=== PATIENT | female | born 1980 | race Caucasian/White ===

== ENCOUNTER 2020-01-31 16:03 | Emergency (ER) | payer MEDICAID, SELFPAY ==
[2020-01-31 16:20] VITALS: BP 152/101; PULSE 88; RESP 18; TEMP 37.1; O2SAT 99; BMI 32.5
--- NOTE | 2020-01-31 16:30 | ED.ANXIETY ---
HPI - Anxiety General Chief Complaint: Anxiety Stated Complaint: anxiety Time Seen by Provider: 01/31/20 16:21 Source: patient Mode of arrival: ambulatory Limitations: no limitations History of Present Illness HPI narrative: 39 y/o female presenting with anxiety. She is reports increased stressors at home and frequent bouts of increased anxiety. She reports whens he gets anxious she gets a racing heart, she gets sweaty, and her hands get tingling. She has mild anxiety on arrival with no tingling and no racing heart. She denies chest pain, shortness of breath. She is not on any medications for anxiety. She has not seen her PCP in some time. She also reports sinus pressure, green nasal discharge for the last 1 week. No fevers, no cough, no SOB. No known exposure to COVID-19. MD complaint: anxiety Onset (ago): week(s) (4) Symptoms: palpitations, extremity numbness/tingling and sense of impending doom Severity: moderate Quality: intermittent Place: home History of similar episodes: Yes Provoking factors: emotional stress Relieving factors: deep breaths and rest Exacerbating factors: nothing Associated symptoms: denies other symptoms Related Data Previous Rx's Medication Instructions Recorded amoxicillin-pot clavulanate 1 tab PO BID #20 tab 01/31/20 [Augmentin] hydroxyzine HCl 25 mg PO Q6H PRN #10 tab 01/31/20 Allergies Allergy/AdvReac Type Severity Reaction Status Date / Time No Known Allergies Allergy Verified 01/31/20 16:23 [No Known Allergies*] Review of Systems Review of Systems: Constitutional: No Fever, No Chills Cardiovascular: No Chest Pain, No SOB, Respiratory: No Cough, No Sputum Gastrointestinal: No Nausea, No Vomiting, No Diarrhea, No abdominal Pain Musculoskeletal: No joint pain, No Myalgias Neuro: No Weakness, No Numbness, No Dizziness, No Headache Psych: + Anxiety/Panic, + Depression Heme/Lymph: No Bruising, No Lymphadenopathy PMFSH Past Medical History Attestation statement: The following information was validated with the patient. Medical History High blood pressure Social History Social History Advance Directives: No Advance Directives Information Provided: No Physical Exam Vital Signs: Vital Signs: Last Vital Signs Temp 98.8 F 01/31/20 16:20 Pulse 88 01/31/20 16:20 Resp 18 01/31/20 16:20 BP 152/101 H 01/31/20 16:20 Pulse Ox 99 01/31/20 16:20 Body Mass Index 32.5 Appearance: Alert. Oriented X3. No acute distress. ENT: Pharynx normal. Neck: Normal inspection. Neck supple. CVS: Normal heart rate and rhythm. Pulses normal. Respiratory: No respiratory distress. Breath sounds normal. Abdomen: Soft and nontender. +BS x4 Skin: Skin warm and dry. Normal skin color. Normal skin turgor. No rashes. Extremities: No lower extremity edema. Neuro: Oriented X 3. No motor deficit. No sensory deficit. Course Course Course Narrative: 39 y/o female presenting with anxiety. Given low ativan with improvement in symptoms. We discussed the importance of f/u with PCP, and how she would likely benefit from therapy and possible maintainable medication. Will give Rx for hydroxazine, patient counseled. Stable for discharge. Critical Care Time Critical Care Time Critical Care Time: No Discharge Plan Discharge Clinical Impression: Acute anxiety Sinusitis Qualifiers: Sinusitis location: frontal Chronicity: acute Recurrence: non-recurrent Qualified Code(s): J01.10 - Acute frontal sinusitis, unspecified Patient Disposition: Home, Self-Care Instructions: Sinusitis (ED), Anxiety (ED) Additional Instructions: Follow up with your doctor this week. Take the prescribed medication as needed for anxiety. Take prescribed antibiotic for infection in your sinuses. Continue to use your nasal spray, fluticasone. Come back to the ER if you develop shortness of breath, difficulty breathing, chest pain or any other concerning symptom. Prescriptions: New amoxicillin-pot clavulanate [Augmentin] 875-125 mg tablet 1 tab PO BID Qty: 20 RF: 0 hydroxyzine HCl 25 mg tablet 25 mg PO Q6H PRN (Reason: anxiety) Qty: 10 RF: 0 Interventions: ED Discharge Assessment Last Done: 01/31/20 16:41 Discharge Date/Time: 01/31/20 16:41
[2020-01-31] MEDS: hydrOXYzine HCL 25 MG TABLET PO (16:38)
== END 2020-01-31 16:41 | disposition home or self-care (01) ==
PROVIDERS: Emergency Provider Internal Medicine; PCP Family Medicine
DX: J01.10 Acute frontal sinusitis, unspecified (principal); F41.1 Generalized anxiety disorder; F43.0 Acute stress reaction
CPT/HCPCS: 99283

== ENCOUNTER 2021-01-19 10:14 | Outpatient (REF) | payer MEDICAID, SELFPAY ==
--- NOTE | ~2021-01-19 | XR_ITS ---
EXAMINATION: XR knee RT 4V, XR knee LT 4V CLINICAL INFORMATION: Bilateral knee pain. COMPARISON: None. TECHNIQUE: Standing AP views of both knees were obtained with lateral, sunrise and tunnel views of each knee. FINDINGS: LEFT KNEE: No bony abnormality. Joint spaces are maintained. Patellar alignment is normal. No joint effusion is demonstrated. RIGHT KNEE: 4 views of the right knee are also normal. XR/XR knee RT 4V IMPRESSION: Normal examination.
--- NOTE | ~2021-01-19 | XR_ITS ---
EXAMINATION: XR hand LT min 3V, XR hand RT min 3V CLINICAL INFORMATION: Bilateral hand pain. COMPARISON: None. TECHNIQUE: Left hand 3 views. Right hand 3 views. FINDINGS: LEFT HAND: No bony abnormality. Joint spaces are maintained with no erosions or other abnormality demonstrated. Alignment is anatomic. No soft tissue calcifications. RIGHT HAND: 3 views of the right hand are also normal. XR/XR hand LT min 3V IMPRESSION: Normal examination.
--- NOTE | ~2021-01-19 | XR_ITS ---
EXAMINATION: XR knee RT 4V, XR knee LT 4V CLINICAL INFORMATION: Bilateral knee pain. COMPARISON: None. TECHNIQUE: Standing AP views of both knees were obtained with lateral, sunrise and tunnel views of each knee. FINDINGS: LEFT KNEE: No bony abnormality. Joint spaces are maintained. Patellar alignment is normal. No joint effusion is demonstrated. RIGHT KNEE: 4 views of the right knee are also normal. XR/XR knee LT 4V IMPRESSION: Normal examination.
--- NOTE | ~2021-01-19 | XR_ITS ---
EXAMINATION: XR hand LT min 3V, XR hand RT min 3V CLINICAL INFORMATION: Bilateral hand pain. COMPARISON: None. TECHNIQUE: Left hand 3 views. Right hand 3 views. FINDINGS: LEFT HAND: No bony abnormality. Joint spaces are maintained with no erosions or other abnormality demonstrated. Alignment is anatomic. No soft tissue calcifications. RIGHT HAND: 3 views of the right hand are also normal. XR/XR hand RT min 3V IMPRESSION: Normal examination.
== END 2021-01-19 10:15 | disposition home or self-care (01) ==
LOC: HO.XRAY 10:14
PROVIDERS: PCP Family Medicine; Visit Provider Family Medicine
DX: M25.561 Pain in right knee (principal); M25.562 Pain in left knee; M79.642 Pain in left hand; M79.641 Pain in right hand
CPT/HCPCS: 73130; 73564

== ENCOUNTER 2021-09-14 15:18 | Outpatient (REF) | payer MEDICAID, SELFPAY ==
[2021-09-15 04:58] LABS: CT PCR NOT DETECTED (Not Detect.); NG PCR NOT DETECTED (Not Detect.)
[2021-09-15 09:22] LABS: BV Int Neg Control Negative (Negative); BV Int Pos Control Positive (Positive)
[2021-09-18 21:12] LABS: HPV mRNA E6/E7 rflx Not Detected (Not Detected)
== END 2021-09-14 15:19 | disposition home or self-care (01) ==
LOC: HO.LAB 15:18
PROVIDERS: Visit Provider Advanced Practice Midwife
DX: Z01.419 Encounter for gynecological examination (general) (routine) without abnormal findings (principal); Z11.3 Encounter for screening for infections with a predominantly sexual mode of transmission; Z11.51 Encounter for screening for human papillomavirus (HPV)
CPT/HCPCS: 87480; 87491; 87510; 87591; 87624; 87660; 88142

== ENCOUNTER → 2021-09-22 14:52 | Outpatient (BNVA) | payer MEDICAID, SELFPAY | PROVIDERS: PCP Family Medicine; Visit Provider Advanced Practice Midwife | DX: Z30.42 Encounter for surveillance of injectable contraceptive (principal) | CPT/HCPCS: 96372; 99211 ==

== ENCOUNTER 2021-12-14 14:44 | Outpatient (REF) | payer MEDICAID, SELFPAY ==
--- NOTE | ~2021-12-14 | MM_ITS ---
EXAMINATION: MM DIAGNOSTIC DIGITAL BREAST TOMOSYNTHESIS, BILATERAL US DIAGNOSTIC ULTRASOUND BREAST, LEFT CLINICAL INFORMATION: 41-year-old with palpable area mid outer left breast and tenderness. No discharge. No prior mammography. No known family history breast cancer. The lifetime risk of breast cancer based on the Tyrer-Cuzick Model is 10%. COMPARISON: None (current study represents initial baseline exam). TECHNIQUE: Digital breast tomosynthesis is performed in both the craniocaudal and mediolateral oblique views along with computer-aided detection (CAD). Synthesized 2D images are generated from the tomosynthesis. Additional magnification right CC and magnification right ML views are obtained. Ultrasound left breast is targeted to the areas of clinical concern upper outer breast using grayscale imaging and color Doppler. Patient is able to point to area of concern at time of imaging. FINDINGS: There are scattered areas of fibroglandular density (ACR BI-RADS breast composition Category b). There is no mass or architectural abnormality. The axilla and skin contours are unremarkable. No skin thickening or coarsening of the Wali's ligaments. Left breast and a few scattered punctate calcifications. Right breast has similar punctate calcifications but loosely grouped in the central anterior breast. Chronicity is unknown. Management plan is for short interval right mammography in 6 months to include magnification views. Ultrasound left breast demonstrates a benign 0.5 cm simple cyst 12:00 position 5 cm from nipple. There is also benign grouped microcysts 1:00 position 3 cm from nipple composition in area of 0.9 x 0.4 cm. There is no duct ectasia. No solid mass or architectural abnormality. Results are discussed with the patient at time of visit. MM/MM tomosynthesis diagnostic BI IMPRESSION: Right: -Probable benign calcifications central anterior breast. Left: -No mammographic evidence of malignancy. -Small simple cyst and benign grouped microcysts upper outer breast on ultrasound. ASSESSMENT: BI-RADS 3: Probably Benign RECOMMENDATION: 1. Patient's left breast symptoms may be based on the clinical impression. 2. Diagnostic right mammography in 6 months to follow-up probable benign calcifications. This patient's information was entered into a reminder system with a target due date for their next mammogram.
== END 2021-12-14 14:45 | disposition home or self-care (01) ==
LOC: HO.MAMMO 14:44
PROVIDERS: PCP Internal Medicine; Visit Provider Internal Medicine
DX: N64.4 Mastodynia (principal); N63.21 Unspecified lump in the left breast, upper outer quadrant
CPT/HCPCS: 76642; 77062; 77066

== ENCOUNTER → 2021-12-19 11:28 | Outpatient (BNVA) | payer MEDICAID, SELFPAY | PROVIDERS: PCP Family Medicine; Visit Provider Advanced Practice Midwife | DX: N92.1 Excessive and frequent menstruation with irregular cycle (principal); Z97.5 Presence of (intrauterine) contraceptive device; Z30.09 Encounter for other general counseling and advice on contraception | CPT/HCPCS: 99212 ==

== ENCOUNTER → 2022-03-06 08:59 | Outpatient (BNVA) | payer MEDICAID, SELFPAY | PROVIDERS: PCP Family Medicine; Visit Provider Advanced Practice Midwife | DX: Z30.433 Encounter for removal and reinsertion of intrauterine contraceptive device (principal); Z12.4 Encounter for screening for malignant neoplasm of cervix; Z30.09 Encounter for other general counseling and advice on contraception; N92.1 Excessive and frequent menstruation with irregular cycle; I10 Essential (primary) hypertension | CPT/HCPCS: 58300; 58301; 99212; J7298 ==

== ENCOUNTER 2022-04-29 12:50 | Emergency (ER) | payer MEDICAID, SELFPAY ==
--- NOTE | ~2022-04-29 | XR_ITS ---
EXAMINATION: XR chest 1V CLINICAL INFORMATION: Reason for Exam cough/subjective wheeze subjective COMPARISON: None TECHNIQUE: XR chest 1V Tubes and lines: None Lungs and pleura: Mild interstitial perihilar opacification probably mild interstitial infiltrates. No dense lobar consolidation lobar pneumonia. Heart and mediastinum: The mediastinum is within normal limits.. Bones/soft tissue: Skeletal structures included are normal for patient's age. XR/XR chest 1V IMPRESSION: Mild parahilar interstitial opacification, cannot rule out mild interstitial pneumonitis.
[2022-04-29 13:10] VITALS: BP 133/88; PULSE 102; RESP 18; TEMP 36.6; O2SAT 95; BMI 34.0
[2022-04-29 13:46] LABS: MANUAL DIFF FLAG NO
[2022-04-29 13:47] LABS: Basophils Percent Auto 0.4 % (0-2); Eosinophils Absolute Auto 0.3 X10*3/uL (0.0-0.4); Eosinophils Percent Auto 2.8 % (0-4); Hematocrit 42.1 % (37.0-47.0); Hemoglobin 13.8 g/dl (12.0-16.0); Imm Gran Abs Auto 0.03 X10*3/uL (0.00-0.03); Imm Gran Pct Auto 0.3 % (0.0-0.4); Lymphocytes Absolute Auto 1.4 X10*3/uL (1.2-4.9); Lymphocytes Percent Auto 13.8 % (20-40); Mean Corpuscular HGB Conc 32.8 g/dl (31.0-35.0); Mean Corpuscular Hemoglobin 26.6 pg (27.0-33.0); Mean Corpuscular Volume 81.1 fL (80.0-98.0); Mean Platelet Volume 10.5 fL (9.4-12.3); Monocytes Absolute Auto 0.6 X10*3/uL (0.1-1.2); Monocytes Percent Auto 6.2 % (2-11); Neutrophils Absolute Auto 7.8 x10*3/uL (2.0-8.3); Neutrophils Percent Auto 76.5 % (45-73); Platelet Count 312 X10*3/uL (160-400); Red Blood Count 5.19 X10*6/uL (4.20-5.50); Red Cell Distribution Width 13.5 % (11.0-16.0); White Blood Count 10.2 X10*3/uL (4.8-10.8)
[2022-04-29 14:23] LABS: Alanine Aminotransferase 14 U/L (0-31); Albumin Level 4.4 g/dL (3.5-5.0); Alkaline Phosphatase 101 U/L (39-117); Anion Gap 14 (12-20); Aspartate Amino Transferase 14 U/L (5-31); Bilirubin Total 0.7 mg/dL (0.0-1.0); Blood Urea Nitrogen 5 mg/dL (9-16); Calcium 9.2 mg/dL (8.4-10.2); Carbon Dioxide 25 mmol/L (22-29); Chloride 106 mmol/L (96-108); Creatinine Clr Calc Pharmacy 101.2; Estimated Glomerular Filt Rate > 60; Glucose Random 162 mg/dL (60-115); HCG Quantitative < 2 mIU/mL; Potassium 4.5 mmol/L (3.3-5.1); Sodium 140 mmol/L (135-145); Total Protein 7.1 g/dL (6.5-8.0)
--- NOTE | 2022-04-29 15:08 | ED_ITS ---
HPI - URI/Sore Throat General Chief Complaint: Upper Respiratory Symptoms Stated Complaint: SOB/Cough/Wheezing Time Seen by Provider: 04/29/22 14:10 Source: patient Mode of arrival: ambulatory Limitations: no limitations History of Present Illness HPI Narrative: Patient is a 41-year-old female who presents emergency department for evaluation of upper respiratory symptoms. Reports a productive cough, sneezing, wheezing for the past 30 days. Denies any fevers chills, chest pain, shortness of breath, difficulty breathing. Reports her son has recently been ill with similar symptoms as well. Related Data Home Medications Medication Instructions Recorded Confirmed acetaminophen 650 mg 650 mg PO Q12H 09/14/21 03/06/22 tablet,extended release amitriptyline 10 mg tablet 10 mg PO DAILY 09/14/21 03/06/22 baclofen 10 mg tablet 10 mg PO DAILY 09/14/21 03/06/22 cholecalciferol (vitamin D3) 1,250 1,250 mcg PO QWEEK 09/14/21 03/06/22 mcg (50,000 unit) capsule fluticasone propionate 50 1 spray intranasal DAILY 09/14/21 03/06/22 mcg/actuation nasal spray,suspension lisinopril 10 mg tablet 10 mg PO DAILY 09/14/21 03/06/22 naproxen 500 mg tablet 500 mg PO BID 09/14/21 03/06/22 sertraline 25 mg tablet 25 mg PO DAILY 09/14/21 03/06/22 zolmitriptan 5 mg tablet 5 mg PO Q2-4H PRN 09/14/21 03/06/22 Previous Rx's Medication Instructions Recorded hydroxyzine HCl 25 mg tablet 25 mg PO Q6H PRN anxiety #10 tabs 01/31/20 albuterol sulfate 90 mcg/actuation 2 puff inhalation Q4-6H PRN 04/29/22 aerosol inhaler shortness of breath or wheezing #6.7 grams azithromycin 250 mg tablet See Rx Instructions PO .COMPLEX #6 04/29/22 tabs prednisone 20 mg tablet 20 mg PO BID 5 days #10 tabs 04/29/22 Allergies Allergy/AdvReac Type Severity Reaction Status Date / Time No Known Allergies Allergy Verified 03/06/22 09:11 [No Known Allergies*] Review of Systems Review of Systems: Yes all other systems are reviewed and are negative PMFSH Past Medical History Attestation statement: The following information was validated with the patient. Source: old records reviewed Medical History Anxiety Depression High blood pressure Migraines Social History Social History Patient Tobacco Use Status: Current everyday Tobacco user Cigarettes Per Day: 3 Advance Directives: No Advance Directives Information Provided: Yes Physical Exam Vital Signs: Vital Signs: Last Vital Signs Temp 98.3 F 04/29/22 15:24 Pulse 100 04/29/22 15:24 Resp 16 04/29/22 15:24 BP 132/85 04/29/22 15:24 Pulse Ox 98 04/29/22 15:24 O2 Del Method 04/29/22 15:24 BMI result Body Mass Index 34.0 Appearance: Alert.?Oriented to person, place and time. No acute distress.?Normal affect. Eyes: Pupils equal, round and reactive to light.? ENT: TM normal bilaterally. Pharynx normal.?? Neck: Normal inspection.? Neck supple.??No cervical adenopathy CVS: Heart sounds normal. Normal heart rate and rhythm.? Pulses normal.?? Respiratory: No respiratory distress.? Lung sounds with mild expiratory wheezing in the upper lobes Abdomen: Soft and non-tender. Normoactive bowel sounds. Skin: Skin warm and dry.? Normal skin color.? ? Extremities: No lower extremity edema.? Neuro: Moves all extremities spontaneously. Sensation intact bilaterally. No motor deficits. Ambulates with normal steady gait. Course Reevaluation(s) Reevaluation #1: CBC reveals no leukocytosis, no anemia. CMP is overall unremarkable. HCG negative. Chest x-ray revealed a mild parahilar interstitial opacification, most likely a mild infiltrate. Viral testing is negative. Discussed with patient plan of care for discharge home, will treat with oral azithromycin, prednisone, and albuterol inhaler. We reviewed worrisome signs and symptoms that would warrant re-evaluation in the emergency department. Advised outpatient follow-up with her primary care provider. Patient verbalized understanding. She is stable for discharge. Time: 16:42 Medical Decision Making Medical Decision Making MDM Narrative: Patient is a 41-year-old female with no reported past medical history presenting for evaluation of upper respiratory symptoms.? Will obtain viral testing, chest x-ray to evaluate for infiltrate/consolidation. At the time my examination she is overall Well-appearing, nontoxic, afebrile, no tachypnea/hypoxia. She is mildly tachycardic with heart rate of 102, is mild expiratory wheezing in the upper lobes.? Speaking clear full sentences, ambulatory with steady gait.? Differential Diagnosis Differential Diagnoses: The differential diagnosis associated with the presentation includes (COVID-19, influenza, adenovirus, rhinovirus, pneumonia, costochondritis, pleurisy) Lab Data MDM Lab Attestation statement: I reviewed the patient's lab results. 04/29/22 13:41 04/29/22 13:41 Labs: Lab Results 04/29/22 04/29/22 04/29/22 Range/Units 13:41 13:41 15:28 WBC 10.2 (4.8-10.8) X10*3/uL RBC 5.19 (4.20-5.50) X10*6/uL Hgb 13.8 (12.0-16.0) g/dl Hct 42.1 (37.0-47.0) % MCV 81.1 (80.0-98.0) fL MCH 26.6 L (27.0-33.0) pg MCHC 32.8 (31.0-35.0) g/dl RDW 13.5 (11.0-16.0) % Plt Count 312 (160-400) X10*3/uL MPV 10.5 (9.4-12.3) fL Immature Gran % (Auto) 0.3 (0.0-0.4) % Neut % (Auto) 76.5 H (45-73) % Lymph % (Auto) 13.8 L (20-40) % [place] % (Auto) 6.2 (2-11) % Eos % (Auto) 2.8 (0-4) % Baso % (Auto) 0.4 (0-2) % Lymph # (Auto) 1.4 (1.2-4.9) X10*3/uL [place] # (Auto) 0.6 (0.1-1.2) X10*3/uL Eos # (Auto) 0.3 (0.0-0.4) X10*3/uL Baso # (Auto) 0.0 (0.0-0.2) X10*3/uL Abs Immat Gran (auto) 0.03 (0.00-0.03) X10*3/uL Absolute Neuts (auto) 7.8 (2.0-8.3) x10*3/uL Absolute Nucleated RBC 0.000 (0.0-0.012) X10*3/uL Nucleated RBC % (auto) 0.0 (0.0-0.2) /100WBC Sodium 140 (135-145) mmol/L Potassium 4.5 (3.3-5.1) mmol/L Chloride 106 (96-108) mmol/L Carbon Dioxide 25 (22-29) mmol/L Anion Gap 14 (12-20) BUN 5 L (9-16) mg/dL Creatinine 0.81 (0.5-1.4) mg/dL Estim Creat Clear Calc 101.2 Estimated GFR > 60 Random Glucose 162 H (60-115) mg/dL Calcium 9.2 (8.4-10.2) mg/dL Total Bilirubin 0.7 (0.0-1.0) mg/dL AST 14 (5-31) U/L ALT 14 (0-31) U/L Alkaline Phosphatase 101 (39-117) U/L Total Protein 7.1 (6.5-8.0) g/dL Albumin 4.4 (3.5-5.0) g/dL Beta HCG, Quant < 2 mIU/mL COVID-19 ([facility]) (Negative) COVID-19 Clin Com Influenza Type A ([facility]) Negative (Negative) Influenza Type B ([facility]) Negative (Negative) Influenza A & B Note See Note 04/29/22 Range/Units 15:28 WBC (4.8-10.8) X10*3/uL RBC (4.20-5.50) X10*6/uL Hgb (12.0-16.0) g/dl Hct (37.0-47.0) % MCV (80.0-98.0) fL MCH (27.0-33.0) pg MCHC (31.0-35.0) g/dl RDW (11.0-16.0) % Plt Count (160-400) X10*3/uL MPV (9.4-12.3) fL Immature Gran % (Auto) (0.0-0.4) % Neut % (Auto) (45-73) % Lymph % (Auto) (20-40) % [place] % (Auto) (2-11) % Eos % (Auto) (0-4) % Baso % (Auto) (0-2) % Lymph # (Auto) (1.2-4.9) X10*3/uL [place] # (Auto) (0.1-1.2) X10*3/uL Eos # (Auto) (0.0-0.4) X10*3/uL Baso # (Auto) (0.0-0.2) X10*3/uL Abs Immat Gran (auto) (0.00-0.03) X10*3/uL Absolute Neuts (auto) (2.0-8.3) x10*3/uL Absolute Nucleated RBC (0.0-0.012) X10*3/uL Nucleated RBC % (auto) (0.0-0.2) /100WBC Sodium (135-145) mmol/L Potassium (3.3-5.1) mmol/L Chloride (96-108) mmol/L Carbon Dioxide (22-29) mmol/L Anion Gap (12-20) BUN (9-16) mg/dL Creatinine (0.5-1.4) mg/dL Estim Creat Clear Calc Estimated GFR Random Glucose (60-115) mg/dL Calcium (8.4-10.2) mg/dL Total Bilirubin (0.0-1.0) mg/dL AST (5-31) U/L ALT (0-31) U/L Alkaline Phosphatase (39-117) U/L Total Protein (6.5-8.0) g/dL Albumin (3.5-5.0) g/dL Beta HCG, Quant mIU/mL COVID-19 ([facility]) Negative (Negative) COVID-19 Clin Com See Note Influenza Type A ([facility]) (Negative) Influenza Type B ([facility]) (Negative) Influenza A & B Note Independent Interpretation I performed an independent interpretation of an: Plain X-Ray (Have personally interpreted x-ray imaging and agree with radiologist impression) Radiology Impression Discussion of test interpretation with radiology: I have reviewed the radiologist's reading. Radiologist Impression: XR/XR chest 1V IMPRESSION: Mild parahilar interstitial opacification, cannot rule out mild interstitial pneumonitis. Prescription Management I considered prescription management with: Pain Medication and Antibiotic Discharge Plan Discharge Clinical Impression: Community acquired pneumonia Patient Disposition: Home, Self-Care Instructions: Pneumonia (ED) Additional Instructions: A prescription for antibiotic was sent to your pharmacy, please complete this entire course, in addition I have sent a prescription for prednisone which is a steroid that you will take daily with food to prevent any stomach upset, and a prescription for albuterol inhaler was sent to the pharmacy. You can take ibuprofen 200 mg, 3 tablets (600mg) every 6-8 hours as needed for pain, in addition to Tylenol 500 mg, 2 tablets (1,000mg) every 4-6 hours as needed for pain, but not to exceed 3 doses daily (3,000mg).? Please be sure to rest over the next few days, drink plenty of fluids to stay well hydrated. Contact your primary care provider and arrange for a follow-up visit next week. You may return back to emergency department any new or worsening symptoms or concerns. Prescriptions: New azithromycin 250 mg tablet See Rx Instructions .ROUTE .COMPLEX Qty: 6 0RF Rx Instructions: For 250 mg dose pack: take 500 mg today (day 1), then 250 mg for 4 days (days 2-5) prednisone 20 mg tablet 20 mg PO BID 5 Days Qty: 10 0RF albuterol sulfate 90 mcg/actuation HFA aerosol inhaler 2 puff inhalation Q4-6H PRN (Reason: shortness of breath or wheezing) Qty: 6.7 0RF No Action hydroxyzine HCl 25 mg tablet 25 mg PO Q6H PRN (Reason: anxiety) Qty: 10 0RF amitriptyline 10 mg tablet 10 mg PO DAILY naproxen 500 mg tablet 500 mg PO BID acetaminophen 650 mg tablet extended release 650 mg PO Q12H sertraline 25 mg tablet 25 mg PO DAILY fluticasone propionate 50 mcg/actuation spray,suspension 1 spray intranasal DAILY Rx Instructions: administer into each nostril zolmitriptan 5 mg tablet 5 mg PO Q2-4H PRN Rx Instructions: do not exceed 2 doses per 24 hrs cholecalciferol (vitamin D3) 1,250 mcg (50,000 unit) capsule 1,250 mcg PO QWEEK lisinopril 10 mg tablet 10 mg PO DAILY baclofen 10 mg tablet 10 mg PO DAILY Referrals: Ailin Savage DO [Primary Care Provider] -
[2022-04-29 15:24] VITALS: BP 132/85; PULSE 100; RESP 16; TEMP 36.8; O2SAT 98
--- NOTE | 2022-04-29 15:29 | MHC.EDTECH ---
this pct assumed care of pt ,pt vitals sign taken ,covid and flu swab collected and sent to lab .
[2022-04-29 16:02] LABS: COVID-19 Test Negative (Negative); IDNOW Serial# 16C4AD1C; IDNOW Serial# BCCEAD1C; Influenza A Negative (Negative); Influenza B2 Negative (Negative)
== END 2022-04-29 16:52 | disposition home or self-care (01) ==
PROVIDERS: Nurse Practitioner Family; Emergency Provider Emergency Medicine; PCP Family Medicine
DX: J18.9 Pneumonia, unspecified organism (principal); R05.9 Cough, unspecified; R06.02 Shortness of breath; Z71.6 Tobacco abuse counseling; Z20.822 Contact with and (suspected) exposure to COVID-19; Z20.828 Contact with and (suspected) exposure to other viral communicable diseases; Z79.899 Other long term (current) drug therapy; F17.210 Nicotine dependence, cigarettes, uncomplicated
CPT/HCPCS: 36415; 71045; 80053; 84702; 85025; 87502; 87635; 99283

== ENCOUNTER 2022-06-14 09:01 | Outpatient (REF) | payer MEDICAID, SELFPAY ==
--- NOTE | ~2022-06-14 | MM_ITS ---
EXAMINATION: MM DIAGNOSTIC DIGITAL MAMMOGRAPHY, RIGHT CLINICAL INFORMATION: Short interval six-month follow-up probable benign calcifications central anterior right breast initially noted at baseline diagnostic for symptoms contralateral left breast. The lifetime risk of breast cancer based on the Tyrer-Cuzick Model is 10%. COMPARISON: Mammography: 12/14/2021 (diagnostic baseline). TECHNIQUE: Digital mammography is performed in craniocaudal and mediolateral oblique views along with computer-aided detection (CAD). Additional magnification right CC and magnification right ML views are obtained. FINDINGS: There are scattered areas of fibroglandular density (ACR BI-RADS breast composition Category b). Parenchymal pattern is similar to prior exam and there is no developing density or architectural abnormality. The axilla and skin contours are unremarkable. The loosely grouped round calcifications central anterior right breast are stable. They will be reassessed again at time of annual bilateral mammography, due in 6 months. Results are provided to the patient at time of visit by the technologist. MM/MM diagnostic mammo unilat RT IMPRESSION: Probable benign loosely grouped round calcifications central anterior right breast, stable. ASSESSMENT: BI-RADS 3: Probably Benign RECOMMENDATION: Diagnostic mammography at time of annual bilateral mammography, due in 6 months. This patient's information was entered into a reminder system with a target due date for their next mammogram.
== END 2022-06-14 09:02 | disposition home or self-care (01) ==
LOC: HO.MAMMO 09:01
PROVIDERS: PCP Internal Medicine; Visit Provider Internal Medicine
DX: R92.1 Mammographic calcification found on diagnostic imaging of breast (principal)
CPT/HCPCS: 77062; 77065

== ENCOUNTER 2022-12-20 10:55 | Outpatient (REF) | payer MEDICAID, SELFPAY ==
--- NOTE | ~2022-12-20 | MM_ITS ---
EXAMINATION: MM DIAGNOSTIC DIGITAL BREAST TOMOSYNTHESIS, BILATERAL CLINICAL INFORMATION: 6 month Follow-up right breast probably benign calcifications (1 year follow-up). Patient also due for bilateral screening. COMPARISON: Mammography: 12/14/2021, 06/14/2022. TECHNIQUE: Digital breast tomosynthesis is performed in both the craniocaudal and mediolateral oblique views along with computer-aided detection (CAD). Synthesized 2D images are generated from the tomosynthesis. FINDINGS: There are scattered areas of fibroglandular density (ACR BI-RADS breast composition Category b). History grouped calcifications in the central anterior right breast are stable and again have a rounded configuration without aggressive changes. There are stable in number and morphology. They remain probably benign. One-year follow-up recommended. Otherwise, there are no suspicious masses or areas of architectural distortion in either breast. The parenchymal pattern is stable from prior exams. MM/MM tomosynthesis diagnostic BI IMPRESSION: No findings suspicious for malignancy in either breast. Stable probably benign central anterior right breast calcifications as described. 1 year follow-up recommended when the patient is due for bilateral screening to include standard magnification views. ASSESSMENT: BI-RADS BI-RADS 3 - Probably benign finding(s) - 12 month follow-up suggested RECOMMENDATION: 12 month diagnostic follow up Results were provided to the patient at time of visit by the technologist. This patient's information was entered into a reminder system with a target due date for their next mammogram.
== END 2022-12-20 10:56 | disposition home or self-care (01) ==
LOC: HO.MAMMO 10:55
PROVIDERS: PCP Internal Medicine; Visit Provider Internal Medicine
DX: R92.1 Mammographic calcification found on diagnostic imaging of breast (principal)
CPT/HCPCS: 77062; 77066

== ENCOUNTER → 2022-12-20 11:00 | Outpatient (BNV) | payer MEDICAID, SELFPAY | PROVIDERS: PCP Internal Medicine; Visit Provider Radiology Diagnostic Radiology | DX: R92.1 Mammographic calcification found on diagnostic imaging of breast (principal); R92.323 Mammographic fibroglandular density, bilateral breasts | CPT/HCPCS: 77062; 77066; G0279 ==

== ENCOUNTER 2023-04-03 15:45 | Outpatient (AMB) | payer MEDICAID, SELFPAY ==
--- NOTE | 2023-04-03 15:46 | A.OFFVIS_ITS ---
Intake Vital Signs 04/03/23 15:49 Height 5 ft 4 in Weight 198 lb 6.656 oz BMI 34.1 BP 118/74 Intake Visit Reasons: Tubal ligation Consult Programmer Business Required: No Information Interpreted: non-clinical & clinical Accompanied by: Son Allergies No Known Allergies [No Known Allergies*] Allergy (Verified 04/03/23 15:49) HPI HPI Comments History of Present Illness Details Presenting to discuss bilateral sterilization PFS Medical History Migraines Anxiety Depression High blood pressure Social History Patient Tobacco Use Status: Current everyday Tobacco user Cigarettes Per Day: 3 Female Reproductive History Menstrual Age of Menarche: 12 Review of Systems Const All systems reviewed & are unremarkable except as noted in HPI and below Reports as per HPI and Reports no additional complaints GI Reports no additional complaints Reports no additional complaints Physical Exam Vital Signs: Last Vital Signs BP 118/74 04/03/23 15:49 BMI result Body Mass Index 34.1 Assessment & Plan Assessment & Plan (1) Family planning: Code(s): Z30.09 - Encounter for other general counseling and advice on contraception Plan: Discussed with the patient the different options of control including control pills/Nuvaring, DMPA, different types of IUD ?s, sterilization. All the pros, cons, risks and benefits of each were discussed with the patient. The patient decided to keep her Mirena IUD for the time being and will call back if she changes her mind. All questions answered, the patient verbalized understanding Coding Level of Care Code Est Pt Level 3 (66838) Diagnoses Family planning Z30.09
[2023-04-03 15:49] VITALS: BP 118/74; BMI 34.1
== END 2023-04-03 16:22 | disposition home or self-care (01) ==
LOC: HO.HWS 15:45
PROVIDERS: PCP Family Medicine; Visit Provider Obstetrics & Gynecology
DX: Z30.09 Encounter for other general counseling and advice on contraception (principal)
CPT/HCPCS: 99213

== ENCOUNTER → 2023-04-03 15:45 | Outpatient (BNVA) | payer MEDICAID, SELFPAY | PROVIDERS: PCP Family Medicine; Visit Provider Obstetrics & Gynecology | DX: Z30.09 Encounter for other general counseling and advice on contraception (principal) | CPT/HCPCS: 99212 ==

== ENCOUNTER 2024-01-29 11:14 | Outpatient (REF) | payer MEDICAID, SELFPAY ==
--- NOTE | ~2024-01-29 | MR_ITS ---
EXAMINATION: MR BRAIN WITHOUT AND WITH CONTRAST CLINICAL INFORMATION: Bilateral tinnitus. COMPARISON: None available. TECHNIQUE: Multiplanar, multisequence MRI of the brain was obtained using a skull base protocol without and following the administration of 9 mL of Gadavist intravenous contrast. FINDINGS: No focal restricted diffusion is demonstrated to suggest acute or subacute cerebral ischemia. No evidence of acute or chronic hemorrhagic products on heme-sensitive imaging. Normal parenchymal signal characteristics. The ventricles are normal in morphology and size. No abnormal mass effect. No midline shift. Normal appearance of the pituitary gland. Normal positioning of the cerebellar tonsils. No mass of the cerebellopontine angles. Normal appearance of the cranial nerve V, VII, and VIII nerve roots. No edema or vascular loops near the nerve root entry sites. Normal appearance of the internal auditory canals without enhancing mass lesions. No abnormal enhancement along the course of the facial nerves bilaterally. Normal appearance of the labyrinthine structures without loss of T2 signal or abnormal enhancement. Normal arterial and venous vascular flow voids are present. No abnormal intracranial contrast enhancement. Normal, homogeneous marrow signal. No signal abnormalities within the paranasal sinuses or mastoids. MR/MR head/brain wo/w con IMPRESSION: 1. No acute intracranial abnormalities. No abnormal intracranial enhancement. 2. No MRI abnormalities to explain the patient's symptoms. Electronically signed by: Tavo Hutson DO 02/12/2024 08:08 AM TAHIR
[2024-01-29] MEDS: gadobutroL 10 ML VIAL IVPUSH (12:13)
== END 2024-01-29 11:15 | disposition home or self-care (01) ==
LOC: HO.MRI 11:14
PROVIDERS: PCP Family Medicine; Visit Provider Family Medicine
DX: H93.13 Tinnitus, bilateral (principal)
CPT/HCPCS: 70553; A9585

== ENCOUNTER 2024-06-25 15:24 | Outpatient (REF) | payer MEDICAID, SELFPAY ==
[2024-06-25 16:03] LABS: Hematocrit 45.4 % (37.0-47.0); Hemoglobin 15.6 g/dl (12.0-16.0); Mean Corpuscular HGB Conc 34.4 g/dl (31.0-35.0); Mean Corpuscular Hemoglobin 29.3 pg (27.0-33.0); Mean Corpuscular Volume 85.3 fL (80.0-98.0); Platelet Count 316 X10*3/uL (160-400); Red Blood Count 5.32 X10*6/uL (4.20-5.50); Red Cell Distribution Width 12.5 % (11.0-16.0); White Blood Count 8.7 X10*3/uL (4.8-10.8)
[2024-06-25 16:43] LABS: Estimated Average Glucose 128 mg/dL; Hemoglobin A1C 171.9389 umol/L; Hemoglobin A1c % 6.1 % (<6.0); Total Hemoglobin (HGBA1C) 3972.7937 umol/L
--- OUTSIDE RECORDS SUMMARY | 2024-06-25 18:07 | XMS_ITS | Encounter Summary ---
Author Organization [employer] Address [address] [place] [address] Care Team Providers Care Bakery Supervisor Name Role Phone Ailin Savage DO Primary Care Provider [phone] Reason for Visit * Reason Onset Date Comments Nurse Triage 06/25/2024 Encounter Details Date Type Department Care Team ([facility] st Contact Info) Description 06/25/[address] [facility] MEDICINE [address], [place] [phone] Ailin Savage DO [address] [place] [address] Nurse Triage Social History Tobacco Use Types Packs/Day Years Used Date Smoking Tobacco: Every Day Cigarettes Passive Smoke Exposure: Current Smokeless Tobacco: Never Alcohol Use Standard Drinks/Week Comments Never 0 (1 standard drink = 0.6 oz pur e alcohol) Depression Answer Date Recorded Patient Health Questionnaire-9 Score 5 08/29/2023 Patient Health Questionnaire-9 Score 5 08/29/2023 Last PHQ-9: Questionnaire Data Not on file 0 08/29/2023 Housing Stability Answer Date Recorded What is your housing situation today? I have trinity delgado 08/20/[address] you li ve. Do you have problems with any of the following? None of the above 08/20/2023 Food Insecurity Answer Date Recorded Within the past 12 months, y ou worried that your food would run out before you got money to buy more: Never True 08/20/2023 Within the past 12 months,th e food you bought just didn't last and you didn't have enough money to get more: Never True Transportation Answer Date Recorded In the past 12 months, has l ack of transportation kept you from medical appts, meetings, work or from getting things needed for daily living? No 08/20/2023 Utilities Answer Date Recorded In the past 12 months, has t he electric, gas, oil or water company threatened to shut off services in your home? No 08/20/2023 Depression Answer Date Recorded Patient Health Questionnaire-2 Score 2 08/29/2023 Internet Access Answer Date Recorded Internet Access Q1 No 11/04/2023 Internet Access Q2 I do not want or need it 04/2023 Comments Unknown Sex and Gender Information Value Date Recorded Sex Assigned at Female 01/01/2022 10:16 AM EDT Legal Sex Female 10:16 AM EDT Gender Identity Female 01/01/2022 10:16 AM EDT Sexual Orientation Straight 01/01/2022 10 :16 AM EDT documented as of this encounter Miscellaneous Notes * Telephone Encounter - Melissa Martel RN - 06/25/2024 2:27 PM EDT Called pt. She states that she has been having ringing in ears (tinnitis). Pt. Was seen by an ENT specialist and they could not find a cure according to pt. Pt. States that she has been having ringing in ears constantly for almost a year and it makes her lose her energy. Pt. States she gets tired easily. Pt wants to be seen. Advised that I can provide an [employer] for her because she has no transportation. Set up Uber and verified address. Uber will pick pt. Up in 3 minutes so I advised pt. To wait outside. Protocol Used: Tinnitus (Adult) Protocol-Based Disposition: See in Office today in [facility] walk in. Positive Triage Questions: * Moderate-Severe tinnitus (i.e., interferes with work, school, or sleep) * Recurrent episodes of hearing loss, dizziness, and ringing in the ear * Patient wants to be seen * All higher-acuity triage questions were negative Care Advice Discussed: * Reassurance and Education - Hearing Pounding Sound or Soft Tinnitus * Avoid Caffeine, Aspirin, and Alcohol * Telephone Encounter - Makeda Grady - 06/25/2024 1:30 PM EDT Symptom: Ear Ringing or Buzzing (No Pain) Outcome: Schedule a same-day appointment or talk to a nurse or provider today Reason: Started within the past 3 days The caller accepted this outcome. documented in this encounter Plan of Treatment Not on file documented as of this encounter Visit Diagnoses Not on filedocumented in this encounter Additional Health Concerns Assessment Noted Time PHQ-9 Depression Total Score: 5 08/29/19 24 10:23 AM EDT documented as of this encounter Care Teams Bakery Supervisor Relationship Specialty Start Date End Date Ailin Savage DO [address] [place] [address] PCP - General Family Medicine 09/24/11 documented as of this encounter
--- OUTSIDE RECORDS SUMMARY | 2024-06-25 18:07 | XMS_ITS | Clinical Summary ---
Author Organization [employer] Address [address] [place] [address] [address] [place] [address] Care Team Providers Care Optical Worker Name Role Phone Janette Ailin Primary Care Provider [phone] Allergies Active Allergy Reactions Criticality Noted Date Comments Penicillins 03/23/2022 Topiramate 06/22/2020 Other reaction(s): Agitation Medications fluticasone (Flonase) 50 MCG/ACT nasal sprayIndication s:Seasonal allergic rhinitis, unspecified trigger SHAKE LIQUID AND USE 2 SPRAYS IN EACH NOSTRIL EVERY DAY FOR SEASONAL ALLERGIES 48 g 03/26/19 24 Active glucose blood (FREESTYLE LITE) test stripIndication s:Type 2 diabetes mellitus without complication, without long-term current use of insulin (CMS/HCC) USE DIRECTED TWICE DAILY 100 strip 11 05/07/19 24 Active Lancets Ultra Thin 30G miscIndications :Type 2 diabetes mellitus without complication, without long-term current use of insulin (CMS/HCC) USE DIRECTED TWICE DAILY 100 each 05/07/19 24 Active Alcohol Swabs (Alcohol Prep) padsIndications :Type 2 diabetes mellitus without complication, without long-term current use of insulin (CMS/HCC) USE DIRECTED TWICE DAILY 100 each 05/07/19 24 Active baclofen (Lioresal) 10 MG tabletIndicatio ns:Muscle spasm TAKE 1 TABLET BY MOUTH THREE TIMES DAILY NEEDED FOR SPASM OR PAIN 60 tablet 1 06/14/19 24 Active escitalopram (Lexapro) 20 MG tablet Take 20 mg by mouth Once per day. 07/02/19 24 Active topiramate (Topamax) 25 MG tablet Take 25 mg by mouth Once per day. 08/14/19 24 Active traZODone (Desyrel) 50 MG tablet Take 50 mg by mouth at bedtime. 08/14/19 24 Active dulaglutide (Trulicity) 0.75 MG/0.5ML solution pen-injector Inject 0.75 mg under the skin 1 (one) time per week. 4 each 5 08/29/19 24 Active acetaminophen (Tylenol 8 Hour) 650 MG ER tabletIndicatio ns:Pain take 1 Tablet by oral route every 8 hours as needed as needed for PAIN AND/OR FEVER 60 tablet 2 08/29/19 24 Active cetirizine (ZyrTEC) 10 MG tablet Take 1 tablet (10 mg) by mouth Once per day. 90 tablet 3 08/29/19 24 025 Active fluticasone furoate (Arnuity Ellipta) 100 MCG/ACT inhalerIndicati ons:Difficulty breathing Inhale 1 puff Once per day. Rinse mouth with water after use to reduce aftertaste and incidence of candidiasis. Do not swallow. 30 each 11 09/01/19 24 025 Active ergocalciferol (Vitamin D2) 1.25 MG (26605 UT) capsuleIndicati ons:Vitamin D deficiency TAKE 1 CAPSULE BY MOUTH 1 TIME WEEKLY 13 capsule 1 12/25/19 24 Active lisinopril 10 MG tabletIndicatio ns:Hypertension , unspecified type TAKE 1 TABLET(10 MG) BY MOUTH IN THE MORNING 90 tablet 1 01/14/20 24 Active naproxen (Naprosyn) 500 MG tablet TAKE 1 TABLET BY MOUTH TWICE DAILY WITH FOOD 40 tablet 01/29/20 24 Active ZOLMitriptan (Zomig) 5 MG tabletIndicatio ns:Nonintractab le chronic migraine TAKE 1 TABLET BY MOUTH 1 TIME. IF HEADACHE RETURNS, THE DOSE. MAY BE REPEATED AFTER 2 HOURS. NOT TO EXCEED 10 MG WITHIN 24 HOURS 9 tablet 3 02/06/20 24 Active metFORMIN XR (Glucophage-XR) 500 MG 24 hr tabletIndicatio ns:Type 2 diabetes mellitus without complication, without long-term current use of insulin (CMS/HCC) TAKE 1 TABLET(500 MG) BY MOUTH WITH THE EVENING MEAL. DO NOT CRUSH, CHEW, OR SPLIT 90 tablet 1 04/30/19 25 Active amitriptyline (Elavil) 10 MG tablet TAKE 1 TABLET BY MOUTH EVERY NIGHT AT BEDTIME FOR MIGRAINE 30 tablet 5 05/27/19 25 Active atorvastatin (Lipitor) 10 MG tabletIndicatio ns:Type 2 diabetes mellitus without complication, without long-term current use of insulin (CMS/[facility]) TAKE 1 TABLET(10 MG) BY MOUTH AT BEDTIME 90 tablet 3 05/27/19 25 Active albuterol (Ventolin HFA) 108 (90 Base) MCG/ACT inhalerIndicati ons:Cough, unspecified type INHALE 2 PUFFS BY MOUTH EVERY 6 HOURS NEEDED FOR WHEEZING 18 g 1 06/26/19 25 Active Blood Pressure kit 1 each 1 (one) time per week. 1 kit 06/26/19 Active albuterol (Ventolin HFA) 108 (90 Base) MCG/ACT inhalerIndicati ons:Cough, unspecified type INHALE 2 PUFFS BY MOUTH EVERY 6 HOURS NEEDED FOR WHEEZING 18 g 1 04/30/19 25 025 Discontinued Active Problems Problem Noted Date Diagnosed Date History of COVID-19 08/29/2023 Hyperlipidemia 08/29/2023 Type 2 diabetes mellitus 03/20/2023 Essential hypertension 12/27/2022 Seasonal allergies 06/23/2021 Anxiety 09/13/2015 Chronic low back pain 09/13/2015 Chronic migraine 09/13/2015 BMI 30.0-30.9,adult 09/13/2015 Posttraumatic stress disorder 09/13/2015 Major depression, recurrent, chronic 09/13/2015 Tobacco dependence 09/13/2015 Assessment & Plan (12/28/2022 6:51 AM EDT): Pt reports episodes of on and off dyspnea and she was in the hospital earlier this year w wheezing. Pt is a tobacco smoker. -Referred today for PFT. -Advised tobacco cessation. Interest in program and referred today. Resolved Problems Problem Noted Date Diagnosed Date Resolved Date Influenza A 12/28/2022 03/20/2023 Assessment & Plan (12/28/2022 6:52 AM EDT): Pt w respiratory viral Sx and reactive airway disease, likely secondary to infection. Initially came w SOB but improved after Tx w NBZ here in clinic. Here COVID 19 Neg, flu B neg, but flu A+. -Supportive Tx. -Tamiflu BID for 5d. -Prednisone daily for 5d. -Albuterol PRN. -Advise hand hygiene, mask use, isolation. -Alarm S/Sx. Breast lump 03/22/2022 06/04/2022 Encounters Date Type Department Care Team Description 06/25/2024 3:00 PM EDT Office Visit [facility] [address] [place] [address] Tinnitus of both ears (Primary Dx); Essential hypertension; Fatigue, unspecified type 06/25/2024 Telephone [facility] [address] [place] [address] Ailin Savage DO Nurse Triage 06/24/2024 Refill [facility] [address] [place] [address] Ailin Savage DO Cough, unspecified type 05/25/2024 Refill [facility] [address] [place] [address] Ailin Savage DO Type 2 diabetes mellitus without complication, without long-term current use of insulin (CMS/HCC) 05/15/2024 Population Health Risk Score [facility] () Department [address] [place] [phone] Provider, Population Health Generic 04/30/2024 Refill [facility] [address] [place] [address] Ban Gerardo, LIGHTING TECHNICIAN Type 2 diabetes mellitus without complication, without long-term current use of insulin (CMS/HCC); Cough, unspecified type 04/30/2024 Refill [facility] [address] [place] [address] Ailin Savage DO Cough, unspecified type from Last 3 Months Immunizations Name Administration Dates Next Due DTaP 09/20/2011 Hep B, adult 08/29/2023 Influenza Injectable Quadriv alant Preservative Free IIV4 MDCK 12/09/2022,12/03/2021,11/10/2019 Influenza injectable quadriv alent IIV4 with preservative 04/18/2017 Influenza injectable quadriv alent preservative free 12/18/2020,12/03/2018,12/23/2017 Influenza, IIV3, injectable 01/08/2014 Pfizer Covid-19 Vaccine 12+ 10/23/2020 Pneumococcal Conjugate PCV 20 03/30/2022 Tdap 01/08/2014 Social History Tobacco Use Types Packs/Day Years [...] is your housing situation today? I have trinitysonia delgado 08/20/[address] you [...] Orientation Straight 01/01/2022 10 :16 AM EDT Last Filed Vital Signs Vital Sign Reading Time Taken Comments Blood Pressure 138/96 06/25/2024 4:09 PM EDT Pulse 84 06/25/2024 2:57 PM EDT Temperature 36.6 ??C (97.9 ??F) 06/25/2024 2:57 PM ED T Respiratory Rate 17 06/25/2024 2:57 PM EDT Oxygen Saturation 97% 06/25/2024 2:57 PM EDT Inhaled Oxygen Concentration - - Weight 78.5 kg (173 lb) 06/25/2024 2:57 PM EDT Height 165.1 cm (5' 5 ) 08/29/2023 10:21 AM EDT Body Mass Index 28.79 08/29/2023 10:21 AM EDT Plan of Treatment Health Maintenance Due Date Last Done Comments Diabetes: Foot Exam 1992 Eye Exam 1992 Alcohol/Substance Use Screening 1994 Family Planning (PISQ) 1997 Diabetes: Urine Protein Screening 2001 Pap Smear 07/27/2003 Lipid Panel 03/23/2023 03/23/2022 Hepatitis B Vaccines (2 of 3 - 19+ 3-dose series) 09/26/2023 08/29/2023 COVID-19 Vaccine (2023- season) 2023 10/23/2020, 08/26/2020 Influenza Vaccine (#1) 2023 , 12/03/2021, 12/18/2020, Additional history exists Diagnostic Breast Imaging 12/21/2023 12/20/2022, Mammogram 12/21/2023 12/20/2022, 06/02, 12/14/2021 DTaP/Tdap/Td Vaccines (3 - Td or Tdap) 01/09/2024 01/08/2014, 09/20/2011 SDOH Screening 08/19/2024 08/20/2023 Depression Screening 08/28/2024 08/29/2023, 08/29/19 Tobacco Screening 08/28/2024 08/29/2023 Diabetes: Hemoglobin A1C 12/25/2024 025, 08/29/2023, 03/23/2022 Cervical Cancer Screening 09/14/2026 HPV/Cotest 09/14/2026 09/14/2021, 09/14/2021 Zoster Vaccines (1 of 2) 2032 RSV Patients and Patients Aged 60 years or older (1 - 1-dose 75+ series) 2057 HIV Screening Completed 03/23/2022 Hepatitis C Screening Completed 03/23/2022 Pneumococcal Vaccine: Pediatrics (0 to 5 Years) and At-Risk Patients (6 to 49) Years) Completed 03/30/2022 HIB Vaccines Aged Out No longer eligi ble based on patient's age to complete this topic HPV Vaccines Aged Out No longer eligi ble based on patient's age to complete this topic Hepatitis A Vaccines Aged Out No long er eligible based on patient's age to complete this topic IPV Vaccines Aged Out No longer eligi ble based on patient's age to complete this topic Meningococcal Vaccine Aged Out No deirdre pura eligible based on patient's age to complete this topic RSV under 20 months Aged Out No longe r eligible based on patient's age to complete this topic Rotavirus Vaccines Aged Out No longer eligible based on patient's age to complete this topic Procedures Procedure Name Priority Date/Time Associated Diagnosis Comments HEMOGLOBIN A1C Routine 06/25/2024 3:27 PM EDT Type 2 diabetes mellitus without complication, without long-term current use of insulin (CMS/HCC) Essential hypertension Other hyperlipidemia Major depression, recurrent, chronic (CMS/HCC) Seasonal allergies Tobacco dependence syndrome Tinnitus of both ears Chronic migraine Sleep-disordered breathing Healthcare maintenance Encounter for immunization CBC Routine 06/25/2024 3:27 PM EDT Type 2 diabetes mellitus without complication, without long-term current use of insulin (CMS/HCC) Essential hypertension Other hyperlipidemia Major depression, recurrent, chronic (CMS/HCC) Seasonal allergies Tobacco dependence syndrome Tinnitus of both ears Chronic migraine Sleep-disordered breathing Healthcare maintenance Encounter for immunization BI MAMMOGRAM DIAGNOSTIC TOMOSYNTHESIS BILATERAL Routine 12/20/2022 11:45 AM EDT HEPATITIS C AB W/RFL RNA, PCR W/RFL GENOTYPE,LIPA Routine 03/23/2022 11:22 AM EST Essential hypertension HIV 1/2 ANTIGEN/ANTIBODY, FOURTH GENERATION W/RFL Routine 03/23/2022 11:22 AM EST Essential hypertension LIPID PANEL, STANDARD Routine 03/23/2022 11:22 AM EST Essential hypertension ZZZ HISTORICAL HPV E6/E7 RFLX SAMMI 16 18/45 Routine 09/14/2021 3:18 PM EDT from Last 3 Months or Most Recently Relevant to Health Maintenance Results * CBC (06/25/2024 3:27 PM EDT) White Blood Count 8.7 4.8 - 10.8 X10*3/uL [facility] Red Blood Count 5.32 4.20 - 5.50 X10*6/uL [facility] Hemoglobin 15.6 12.0 - 16.0 g/dl [facility] Hematocrit 45.4 37.0 - 47.0 % [facility] Mean Corpuscular Volume 85.3 80.0 - 98.0 fL [facility] Mean Corpuscular Hemoglobin 29.3 27.0 - 33.0 pg [facility] Mean Corpuscular HGB Conc 34.4 31.0 - 35.0 g/dl [facility] Red Cell Distribution Width 12.5 11.0 - 16.0 % [facility] Platelet Count 316 160 - 400 X10*3/uL [facility] Mean Platelet Volume 11.0 9.4 - 12.3 fL [facility] NRBC Pct Auto 0.0 0.0 - 0.2 /100WBC [facility] NRBC Abs Auto 0.000 0.0 - 0.012 X10*3/uL [facility] Blood Venous blood specimen / Unknown 06/25/2024 3:27 PM EDT 06/25/2024 3:55 PM EDT us Ailin Savage DO LAB BLOOD ORDERABLES Final R esult [facility] [address] [place] [address] [phone] * (ABNORMAL) Hemoglobin A1c (06/25/2024 3:27 PM EDT) Hemoglobin A1c 6.1(H) <6.0 % [facility] Comment:Hemoglobin A1C Refer ence Range Adults: 4.8 - 6.0 % Non diabetic: < 6.0 % Goal: < 7.0 %Additional Action Suggested: > 8.0 %Note: Hemoglobin A1c results are invalid for patients with abnormal amounts of HbF. Blood transfusions may impact the HbA1c concentration in the patient sample. Estimated Average Glucose 128 mg/dL [facility] Comment:eAG = Estimated ave rage glucose which is %A1C expressed asaverage glucose, using the formula of the J6T-JjtpaeeAuamodl Glucose study (ADAG), Diabetes Care, Vol.31,#8,Oct. 2007 Blood Venous blood specimen / Unknown 06/25/2024 3:27 PM EDT 06/25/2024 3:55 PM EDT us Ailin Savage DO LAB BLOOD ORDERABLES Final R esult [facility] [address] [place] [address] [phone] * BI Mammogram Diagnostic Tomosynthesis Bilateral (12/20/2022 11:45 AM EDT) Anatomical Region Laterality Modality Breast Bilateral Mammography 12/20/2022 11:4 5 AM EDT Narrative 12/20/2022 12:11 PM EDT ? [facility] [place] ? [address] ?[place] [address] ? Mammography Report ? Signed ? Patient: Sawyer,Jamary ?MR#: [id number] ?? [birth year] ? : 1980 ?Acct:[id number] ? Age/Sex: 42 / F ?ADM Date: 10/19/23 ? Loc: HO.MAMMO ? Attending Dr: Vandana Knox MD ? Ordering Physician: Vandana Jama MD ?Results: 3.12MProbably Benign Finding - 12 month F/U ?? Suggested ? Date of Service: 12/20/22 ?Follow Up: 12 month diagnos ?? tic follow up ? Procedure(s): MM tomosynthesis diagnostic BI ?? Accession Number(s): [id number] ? cc: Vnadana Jama MD ? EXAMINATION: ?? MM DIAGNOSTIC DIGITAL BREAST TOMOSYNTHESIS, BILATERAL ? CLINICAL INFORMATION: ? 6 month Follow-up right breast probably benign calcifications (1 year ?? follow-up). Patient also due for bilateral screening. ? COMPARISON: ?? Mammography: 12/14/2021, 06/14/2022. ? TECHNIQUE: ?? Digital breast tomosynthesis is performed in both the craniocaudal and ?? mediolateral oblique views along with computer-aided detection (CAD). ?? Synthesized 2D images are generated from the tomosynthesis. ? FINDINGS: ?? There are scattered areas of fibroglandular density (ACR BI-RADS breast ?? composition Category b). ? History grouped calcifications in the central anterior right breast are ?? stable and again have a rounded configuration without aggressive ?? changes. There are stable in number and morphology. They remain ?? probably benign. One-year follow-up recommended. ? Otherwise, there are no suspicious masses or areas of architectural ?? distortion in either breast. The parenchymal pattern is stable from ?? prior exams. ? MM/MM tomosynthesis diagnostic BI ?? IMPRESSION: ?? No findings suspicious for malignancy in either breast. ? Stable probably benign central anterior right breast calcifications as ?? described. 1 year follow-up recommended when the patient is due for ?? bilateral screening to include standard magnification views. ? ASSESSMENT: ? BI-RADS BI-RADS 3 - Probably benign finding(s) - 12 month follow-up ?? suggested ? RECOMMENDATION: ?? 12 month diagnostic follow up ? Results were provided to the patient at time of visit by the ?? technologist. ? This patient's information was entered into a reminder system with a ?? target due date for their next mammogram. ? Dictated By: ?Chato Martínez MD ? Signed By: ?<Electronically signed by Chato Martínez MD in OV> ?10/19/23 1208 ? DD/ 1145 ? TD/TT: ? Spring Fitter: ? Procedure Note Paola Patel - 12/20/2022 Tin [facility] [address] [place], [place] [address] Mammography Report Signed Patient: German Sawyer#: [id number] [birth year] : 1980Acct:[id number] Age/Sex: 42 / FADM Date: 12/20/22 Loc: HO.MAMMO Attending Dr: Vandana Knox MD Ordering Physician: Vandana Jama MD Results: 3.12MProbably Benign Finding - 12 month F/U Suggested Date of Service: 12/20/22Follow Up: 12 month diagnos tic follow up Procedure(s): MM tomosynthesis diagnostic BI Accession Number(s): [id number] cc: Vandana Jama MD EXAMINATION: MM DIAGNOSTIC DIGITAL BREAST TOMOSYNTHESIS, BILATERAL CLINICAL INFORMATION: 6 month Follow-up right breast probably benign calcifications (1 year follow-up). Patient also due for bilateral screening. COMPARISON: Mammography: 12/14/2021, 06/14/2022. TECHNIQUE: Digital breast tomosynthesis is performed in both the craniocaudal and mediolateral oblique views along with computer-aided detection (CAD). Synthesized 2D images are generated from the tomosynthesis. FINDINGS: There are scattered areas of fibroglandular density (ACR BI-RADS breast composition Category b). History grouped calcifications in the central anterior right breast are stable and again have a rounded configuration without aggressive changes. There are stable in number and morphology. They remain probably benign. One-year follow-up recommended. Otherwise, there are no suspicious masses or areas of architectural distortion in either breast. The parenchymal pattern is stable from prior exams. MM/MM tomosynthesis diagnostic BI IMPRESSION: No findings suspicious for malignancy in either breast. Stable probably benign central anterior right breast calcifications as described. 1 year follow-up recommended when the patient is due for bilateral screening to include standard magnification views. ASSESSMENT: BI-RADS BI-RADS 3 - Probably benign finding(s) - 12 month follow-up suggested RECOMMENDATION: 12 month diagnostic follow up Results were provided to the patient at time of visit by the technologist. This patient's information was entered into a reminder system with a target due date for their next mammogram. Dictated By: Chato Martínez MD Signed By: <Electronically signed by Chato Martínez MD in OV> 12/20/22 1208 DD/ 1145 TD/TT: Spring Fitter: us Vandana Knox MD IMG BI PROCEDURES Fin al Result * Hepatitis C Antibody with Reflex to HCV RNA,PCR w/Reflex to Genotype, LiPA (03/23/2022 11:22 AM EST) Hepatitis C Antibody NON-REACT BERNABE NON-REACT BERNABE [facility] Index 0.13 <1.00 [facility] [place] [facility] Comment: HCV antibody was non-reactive. There is no laboratory evidence of HCV infection. In most cases, no further action is required. However, if recent HCV exposure is suspected, a test for HCV RNA (test code 46562) is suggested. For additional information, please refer to http://[employer]/faq/DPM092 (This link is being provided for informational/ educational purposes only.) 03/23/2022 11:2 2 AM EST 03/23/2022 11:22 AM EST Narrative [facility] - 03/27/2022 8:28 AM EST FASTING:YES FASTING: YES Ailin Savage DO LAB BLOOD ORDERABLES Final R esult [employer] [address] [facility], [facility], [place] [address] [facility] [place] [employer] [address] [facility], ([address]) [place] [address] * HIV-1/2 Antigen and Antibodies, Fourth Generation, with Reflexes (03/23/2022 11:22 AM EST) Pathologist [facility] HIV Antigen/Antibody, 4th Generation NON-REAC TIVE NON-REAC TIVE [facility] [place] [facility] [facility] Comment: HIV-1 antigen and HIV-1/HIV-2 antibodies were not detected. There is no laboratory evidence of HIV infection. PLEASE NOTE: This information has been disclosed to you from records whose confidentiality may be protected by state law. ??If your state requires such protection, then the state law prohibits you from making any further disclosure of the information without the specific written consent of the person to whom it pertains, or as otherwise permitted by law. A general authorization for the release of medical or other information is NOT sufficient for this purpose. ?? For additional information please refer to http://[employer] [place]/faq/YWB673 (This link is being provided for informational/ educational purposes only.) The performance of this assay has not been clinically validated in patients less than 2 years old. Blood Venous blood specimen / Unknown 03/23/2022 11:22 AM EST 03/23/2022 11:22 AM EST Narrative [facility] - 03/27/2022 8:28 AM EST FASTING:YES FASTING: YES Ailin Savage DO LAB BLOOD ORDERABLES Final R esult [facility] [address] [facility], 3rd Fl, [place] [address] [facility] [place] [employer] [address], ([address]) [place] [address] * (ABNORMAL) Lipid Panel, Standard (03/23/2022 11:22 AM EST) Cholesterol, Total 193 <200 mg/dL [facility] [place] [employer] HDL Cholesterol 38(L) > OR = 50 mg/dL [facility] [place] [employer] [facility] Triglycerides 132 <150 mg/dL [facility] [place] [employer] [facility] LDL Cholesterol 130(H) mg/dL (calc) [facility] [place] [employer] [facility] Comment: Reference range: <100 Desirable range <100 mg/dL for primary prevention; ?? <70 mg/dL for patients with CHD or diabetic patients with > or = 2 CHD risk factors. LDL-C is now calculated using the Luca-Fletcher calculation, which is a validated novel method providing better accuracy than the Friedewald equation in the estimation of LDL-C. Luca SS et al. SHAE. 2013;310(19): 5638-4046 (http://education.[employer]/faq/PDL244) Chol/HDLC Ratio 5.1(H) <5.0 (calc) [facility] [place] [employer] [facility] Non-HDL Cholesterol 155(H) <130 mg/dL (calc) [facility] [place] [employer] Comment: For patients with diabetes plus 1 major ASCVD risk factor, treating to a non-HDL-C goal of <100 mg/dL (LDL-C of <70 mg/dL) is considered a therapeutic option. Blood Venous blood specimen / Unknown 03/23/2022 11:22 AM EST 03/23/2022 11:22 AM EST Narrative [facility] - 03/27/2022 8:28 AM EST FASTING:YES FASTING: YES Ailin Savage DO LAB BLOOD ORDERABLES Final R esult [facility] [address], [place] [address] [facility] [place] [employer] [address] [facility], ([address]) [place] [address] * HPV E6/E7 RFLX SAMMI 16 18/45 (09/14/2021 3:18 PM EDT) HPV mRNA E6/E7 rflx Not Detected Not Detected [facility] Comment: Methodology: Charity Fundraiser-Mediated Amplification This assay detects E6/E7 viral messenger RNA (mRNA) from 14 high-risk HPV types (16,18,31,33,35,39,45,51,52,56,58,59,66,68). Cervical sources are required for HPV testing. If a vaginal source from a patient who has had a total hysterectomy with removal of cervix was submitted, please contact the testing laboratory for alternative testing options. For additional information, please refer to http://education.[employer]ation/faq/ADN607w5 (This link if provided for information/ educational purposes only.) THIS TEST WAS PERFORMED AT: [facility] [employer] [address] [place] [address],[address] [place], [place] ??[phone] CECY SINHA MD 09/14/2021 3:18 PM EDT us [place] HISTORICAL/NON ORDERABLE LABS Fi nal Result Performing Organization Address City/[facility]/ZIP Co de Phone Number [facility] [address] from Last 3 Months or Most Recently Relevant to Health Maintenance Insurance [facility] C3 Care Teams Optical Worker Relationship Specialty Start Date End Date Ailin Savage DO [address] [place] [phone] PCP - General Family Medicine 09/24/11
--- OUTSIDE RECORDS SUMMARY | 2024-06-25 18:07 | XMS_ITS | Encounter Summary ---
Author Organization [employer] Address [address] [facility] 7t [place] [address] Care Team Providers Care Adjunct Psychology Faculty Member Name Role Phone Ailin Savage DO Primary Care Provider [phone]- [phone] Reason for Visit * Reason Comments Med Refill Encounter Details Date Type Department Care Team ([facility] st Contact Info) Description 06/10/2023 Refill [facility] [address] [place], [place] [phone] Ailin Savage DO [address] [place], [place] [phone] Vitamin D deficiency Social History Tobacco Use Types Packs/Day Years Used Date Smoking Tobacco: Every Day Cigarettes Smokeless Tobacco: Never Alcohol Use Standard Drinks/Week Comments Never 0 (1 standard drink = 0.6 oz pur e alcohol) Depression Answer Date Recorded Patient Health Questionnaire-9 Score 6 03/23/2022 Housing Stability Answer Date Recorded What is your housing situation today? I have trinity delgado 12/18/[address] you li ve. Do you have problems with any of the following? None of the above 12/18/2022 Food Insecurity Answer Date Recorded Within the past 12 months, y ou worried that your food would run out before you got money to buy more: Never True 12/18/2022 Within the past 12 months,th e food you bought just didn't last and you didn't have enough money to get more: Never True Transportation Answer Date Recorded In the past 12 months, has l ack of transportation kept you from medical appts, meetings, work or from getting things needed for daily living? No 12/18/2022 Utilities Answer Date Recorded In the past 12 months, has t he electric, gas, oil or water company threatened to shut off services in your home? No 12/18/2022 Depression Answer Date Recorded Patient Health Questionnaire-2 Score 2 03/23/2022 Comments Unknown Sex and Gender Information Value Date Recorded Sex Assigned at Female 01/01/2022 10:16 AM EDT Legal Sex Female 10:16 AM EDT Gender Identity Female 01/01/2022 10:16 AM EDT Sexual Orientation Straight 01/01/2022 10 :16 AM EDT documented as of this encounter Plan of Treatment Not on file documented as of this encounter Visit Diagnoses Diagnosis Vitamin D deficiency documented in this encounter Additional Health Concerns Assessment Noted Time PHQ-9 Depression Total Score: 6 03/23/19 10:22 AM EST documented as of this encounter Care Teams Adjunct Psychology Faculty Member Relationship Specialty Start Date End Date Ailin Savage DO [address] [place] [id number] PCP - General Family Medicine 09/24/11 documented as of this encounter
--- OUTSIDE RECORDS SUMMARY | 2024-06-25 18:07 | XMS_ITS | Encounter Summary ---
Author Organization [employer] Address [address] [facility] 7t [place] [address] Care Team Providers Care Bisque Brusher Name Role Phone Ailin Savage DO Primary Care Provider [phone]- [phone] Reason for Visit * Reason Comments Med Refill Encounter Details Date Type Department Care Team ([facility] st Contact Info) Description 06/24/2024 Refill [facility] MEDICINE [address] [place], [place] [phone] Ailin Savage DO [address] [place], [place] [phone] Cough, unspecified type Social History Tobacco Use Types Packs/Day Years [...] as of this encounter Visit Diagnoses Diagnosis Cough, unspecified type documented in this encounter Additional Health Concerns Assessment Noted Time PHQ-9 Depression Total Score: 5 08/29/19 24 10:23 AM EDT documented as of this encounter Care Teams Bisque Brusher Relationship Specialty Start Date End Date Ailin Savage DO [address] [place] [id number] PCP - General Family Medicine 09/24/11 documented as of this encounter
--- OUTSIDE RECORDS SUMMARY | 2024-06-25 18:07 | XMS_ITS | Encounter Summary ---
Author Organization [employer] Address [address] [place] [address] 7[address] [place] [address] Care Team Providers Care Information Resources Director Name Role Phone Ailin Savage DO Primary Care Provider [phone]- [phone] Reason for Referral * Consultation (Routine) - Pending Review Specialty Diagnoses / Procedures Referred By Mauricio zurita Referred To Contact Otolaryngology Diagnoses Tinnitus of both ears Ailin Savage DO [address] [place] [address] Phone: tel: fax: Referral ID Status Reason Start Date Expiration Date Visits Requested Visits Authorized [id number] Pending Review Specialty Services Required 06/25/2024 06/25/2025 1 1 Reason for Visit * Reason Comments Earache Headache Encounter Details Date Type Department Care Team (Late st Contact Info) Description 06/25/2024 3:00 PM EDT Office Visit [facility] [address] [place] [address] Tinnitus of both ears (Primary Dx); Essential hypertension; Fatigue, unspecified type Social History Tobacco Use Types [...] AM EDT documented as of this encounter Last Filed Vital Signs Vital Sign Reading Time Taken Comments Blood Pressure 138/96 06/25/2024 4:09 PM EDT Pulse 84 06/25/2024 2:57 PM EDT Temperature 36.6 ??C (97.9 ??F) 06/25/2024 2:57 PM ED T Respiratory Rate 17 06/25/2024 2:57 PM EDT Oxygen Saturation 97% 06/25/2024 2:57 PM EDT Inhaled Oxygen Concentration - - Weight 78.5 kg (173 lb) 06/25/2024 2:57 PM EDT Height - - Body Mass Index 28.79 08/29/2023 10:21 AM EDT documented in this encounter Plan of Treatment Scheduled Orders Name Type Priority Associated Diagnoses Orde r Schedule T4, Free Lab Routine Tinnitus of both ears Essential hypertension Fatigue, unspecified type Expected: 06/25/2024 (Approximate), Expires: 06/25/2025 Vitamin D, 25-Hydroxy, Total, Immunoassay Lab Routine Tinnitus of both ears Essential hypertension Fatigue, unspecified type Expected: 06/25/2024 (Approximate), Expires: 06/25/2025 Lipid Panel, Standard Lab Routine Tinnitus of both ears Essential hypertension Fatigue, unspecified type Expected: 06/25/2024 (Approximate), Expires: 06/25/2025 TSH Lab Routine Tinnitus of both ears Essential hypertension Fatigue, unspecified type Expected: 06/25/2024 (Approximate), Expires: 06/25/2025 Hepatic Function Panel Lab Routine Tinnitus of both ears Essential hypertension Fatigue, unspecified type Expected: 06/25/2024 (Approximate), Expires: 06/25/2025 Hemoglobin A1c Lab Routine Tinnitus of both ears Essential hypertension Fatigue, unspecified type Expected: 06/25/2024 (Approximate), Expires: 06/25/2025 Basic Metabolic Panel Lab Routine Tinnitus of both ears Essential hypertension Fatigue, unspecified type Expected: 06/25/2024 (Approximate), Expires: 06/25/2025 CBC Lab Routine Tinnitus of both ears Essential hypertension Fatigue, unspecified type Expected: 06/25/2024, Expires: 06/25/2025 Albumin, Random Urine W/Creatinine Lab Routine Tinnitus of both ears Essential hypertension Fatigue, unspecified type Expected: 06/25/2024 (Approximate), Expires: 06/25/2025 Hepatitis B surface antigen, EIA Lab Routine Tinnitus of both ears Essential hypertension Fatigue, unspecified type Expected: 06/25/2024 (Approximate), Expires: 06/25/2025 Chlamydia/N. Gonorrhoeae RNA, TMA, Urogenitial Microbiology Routine Tinnitus of both ears Essential hypertension Fatigue, unspecified type Ordered: 06/25/2024 HIV-1/2 Antigen and Antibodies, Fourth Generation, with Reflexes Lab Routine Tinnitus of both ears Essential hypertension Fatigue, unspecified type Expected: 06/25/2024 (Approximate), Expires: 06/25/2025 Hepatitis C Antibody with Reflex to HCV, RNA, Quantitative, Real-Time PCR Lab Routine Tinnitus of both ears Essential hypertension Fatigue, unspecified type Expected: 06/25/2024, Expires: 06/25/2025 RPR (Monitor) with Reflex to??Titer Lab Routine Tinnitus of both ears Essential hypertension Fatigue, unspecified type Expected: 06/25/2024, Expires: 06/25/2025 Hepatitis B Surface Antibody, Qualitative Lab Routine Tinnitus of both ears Essential hypertension Fatigue, unspecified type Expected: 06/25/2024 (Approximate), Expires: 06/25/2025 ROBERTO Screen,IFA, with Reflex to Titer and Pattern Lab Routine Tinnitus of both ears Essential hypertension Fatigue, unspecified type Expected: 06/25/2024 (Approximate), Expires: 06/25/2025 Lyme Disease Ab with Reflex to Blot (IgG, IgM) Lab Routine Tinnitus of both ears Essential hypertension Fatigue, unspecified type Expected: 06/25/2024, Expires: 06/25/2025 Rheumatoid Factor Lab Routine Tinnitus of both ears Essential hypertension Fatigue, unspecified type Expected: 06/25/2024, Expires: 06/25/2025 Sed Rate by Modified Westergren Lab Routine Tinnitus of both ears Essential hypertension Fatigue, unspecified type Expected: 06/25/2024, Expires: 06/25/2025 C-reactive Protein Lab Routine Tinnitus of both ears Essential hypertension Fatigue, unspecified type Expected: 06/25/2024 (Approximate), Expires: 06/25/2025 Creatine Kinase, Total Lab Routine Tinnitus of both ears Essential hypertension Fatigue, unspecified type Expected: 06/25/2024, Expires: 06/25/2025 Hepatitis A Antibody, Total Lab Routine Tinnitus of both ears Essential hypertension Fatigue, unspecified type Expected: 06/25/2024 (Approximate), Expires: 06/25/2025 Hepatitis B Core Antibody, Total Lab Routine Tinnitus of both ears Essential hypertension Fatigue, unspecified type Expected: 06/25/2024 (Approximate), Expires: 06/25/2025 Scheduled Referrals Name Type Priority Associated Diagnoses Orde r Schedule Referral to ENT Outpatient Referral Routine Tinnitus of both ears Expected: 06/25/2024 (Approximate), Expires: 06/25/2025 documented as of this encounter Visit Diagnoses Diagnosis Tinnitus of both ears- Primary Unspecified tinnitus Essential hypertension Unspecified essential hypertension Fatigue, unspecified type documented in this encounter Additional Health Concerns Assessment Noted Time PHQ-9 Depression Total Score: 5 08/29/19 24 10:23 AM EDT documented as of this encounter Care Teams Information Resources Director Relationship Specialty Start Date End Date Ailin Savage DO [address] [place] [address] PCP - General Family Medicine 09/24/11 documented as of this encounter
[2024-06-25 18:14] LABS: Alanine Aminotransferase 10 U/L (0-31); Albumin Level 4.5 g/dL (3.5-5.0); Alkaline Phosphatase 79 U/L (39-117); Anion Gap 9 (12-20); Aspartate Amino Transferase 21 U/L (5-31); Bilirubin Direct 0.2 mg/dL (0.0-0.5); Bilirubin Total 0.6 mg/dL (0.0-1.0); Blood Urea Nitrogen 8 mg/dL (9-16); Calcium 9.5 mg/dL (8.4-10.2); Carbon Dioxide 25 mmol/L (22-29); Chloride 108 mmol/L (96-108); Cholesterol 200 mg/dL (<200); Estimated Glomerular Filt Rate > 60; Glucose Random 91 mg/dL (60-115); HDL Cholesterol 40 mg/dL (>40); LDL Cholesterol Calculated 130 mg/dL (<100); Potassium 4.2 mmol/L (3.3-5.1); Sodium 138 mmol/L (135-145); Total Protein 7.4 g/dL (6.5-8.0); Triglycerides 153 mg/dL (<150)
[2024-06-25 18:30] LABS: Free T4 (Free Thyroxine) 0.92 ng/dL (0.71-1.85); Vitamin D 25-OH Total 46.8 ng/mL (>30)
[2024-06-25 18:59] LABS: Creatinine Urine 106.57 mg/dL; Microalbum/Creatinine Ratio Ur 8.4 ug/mg cr (<30)
[2024-06-26 03:46] LABS: HBc Num1 0.19 S/CO (0.00-0.79); Hepatitis B Core Antibody Nonreactive (Nonreactive)
[2024-06-30 07:49] LABS: Hepatitis A Antibody IgG Nonreactive (Nonreactive); ~Hepatitis A Antibody IgG 0.86 S/CO (0.00-0.99)
== END 2024-06-25 15:25 | disposition home or self-care (01) ==
LOC: HO.HHCL 15:24
PROVIDERS: Visit Provider Family Medicine
DX: Z00.00 Encounter for general adult medical examination without abnormal findings (principal); E11.9 Type 2 diabetes mellitus without complications; I10 Essential (primary) hypertension; E78.49 Other hyperlipidemia; F33.9 Major depressive disorder, recurrent, unspecified; J30.2 Other seasonal allergic rhinitis; F17.200 Nicotine dependence, unspecified, uncomplicated; H93.13 Tinnitus, bilateral; G43.909 Migraine, unspecified, not intractable, without status migrainosus; G47.30 Sleep apnea, unspecified
CPT/HCPCS: 36415; 80048; 80061; 80076; 82043; 82306; 82570; 83036; 84439; 84443; 85027; 86704; 86708

== ENCOUNTER 2024-11-20 23:40 | Emergency (ER) | payer MEDICAID, SELFPAY ==
--- NOTE | ~2024-11-20 | XR_ITS ---
CLINICAL HISTORY: SOB, cough 2 view chest x-ray Comparison: CR/SR - XR CHEST 2 VIEWS - 04/29/22 13:58 EST Findings: No consolidation or effusion. Heart size is normal. No acute fracture. IMPRESSION: 1. No acute findings. This document has been electronically signed by: Harjinder Ferrera MD, PHD on 11/21/2024 02:33:12
[2024-11-20 23:45] VITALS: BP 134/84; PULSE 115; RESP 24; TEMP 37; O2SAT 96; BMI 29.2
--- NOTE | 2024-11-20 23:50 | ED.SOB ---
HPI - SOB/Dyspnea General Chief Complaint: Dyspnea Stated Complaint: Dyspnea Time Seen by Provider: 11/20/24 23:50 Source: patient Mode of arrival: ambulatory Limitations: no limitations History of Present Illness ED Provider: Elba Turner PA-C HPI Narrative: Patient seeks medical attention today for evaluation of asthma. Patient states starting today she felt like her asthma was getting more worse but she has had a dry cough since yesterday. She used her inhaler a few times today and it has not helped but she feels like her chest tightness has worsened and it is hard for her to pass air. She is denies any angina. She has never had to be hospitalized or intubated for her asthma. She is denying any fevers chills or sweats reports a stuffy nose but otherwise no difficulty with swallowing. She denies any palpitations no body aches joint pain no rashes. She is able tolerate p.o. fluids and void regularly. Denying any headaches or dizziness. She is on a rescue inhaler only she can not recall whether or not she has ever had PFTs done before but her son has who sees a transportation officer. She has never seen a transportation officer. MD elicited complaint: shortness of breath and cough Related Data Home Medications ?Medication ?Instructions ?Recorded ?Confirmed acetaminophen 650 mg 650 mg PO Q12H 09/14/21 03/06/22 tablet,extended release amitriptyline 10 mg tablet 10 mg PO DAILY 09/14/21 03/06/22 baclofen 10 mg tablet 10 mg PO DAILY 09/14/21 03/06/22 cholecalciferol (vitamin D3) 1,250 1,250 mcg PO QWEEK 09/14/21 03/06/22 mcg (50,000 unit) capsule fluticasone propionate 50 1 spray intranasal DAILY 09/14/21 03/06/22 mcg/actuation nasal spray,suspension lisinopril 10 mg tablet 10 mg PO DAILY 09/14/21 03/06/22 naproxen 500 mg tablet 500 mg PO BID 09/14/21 03/06/22 sertraline 25 mg tablet 25 mg PO DAILY 09/14/21 03/06/22 zolmitriptan 5 mg tablet 5 mg PO Q2-4H PRN 09/14/21 03/06/22 levonorgestrel (Mirena) intrauterine 04/03/23 Previous Rx's ?Medication ?Instructions ?Recorded hydroxyzine HCl 25 mg tablet 25 mg PO Q6H PRN anxiety #10 tabs 01/31/20 albuterol sulfate 90 mcg/actuation 2 puff inhalation Q4-6H PRN 04/29/22 aerosol inhaler shortness of breath or wheezing #6.7 grams fluticasone furoate 100 1 inh inhalation DAILY #30 ea 11/21/24 mcg/actuation blister powder for inhalation (Arnuity Ellipta) inhalational spacing device #1 ea 11/21/24 (Flexichamber spacer) prednisone 20 mg tablet 40 mg (2 x 20 mg) PO DAILY 5 days 11/21/24 #10 tabs Allergies Allergy/AdvReac Type Severity Reaction Status Date / Time Penicillins (PCN) AdvReac Rash Verified 11/20/24 23:46 Review of Systems Review of Systems: Yes all other systems are reviewed and are negative PMFSH Past Medical History Attestation statement: The following information was validated with the patient. Source: old records reviewed and nursing notes reviewed Medical History (Updated 11/21/24 @ 01:41 by Elba Turner PA-C) Asthma Migraines Anxiety Depression High blood pressure Social History Social History Patient Tobacco Use Status: Current everyday Tobacco user Cigarettes Per Day: 3 Advance Directives: No Advance Directives Information Provided: Yes Do you have a plan to hurt others: No Plan Physical Exam Exam: Exam: General: Appears in no acute distress, appears well nourished body habitus is obese, appears stated age. No septic or ill-appearing. Vitals reviewed normal, PMH/Social and Surgical hx reviewed including allergies and current medications. - reviewed for prior visits here and red as it pertains to similar chief complaint in April of 2022 for pneumonia. Head: Normocephalic, no obvious trauma or skin lesions noted. Eyes: EOMI conjunctiva and sclerae are clear no discharge ENMT: moist oral mucosa uvula is midline no trismus Neck: trachea midline no accessory muscle use but audible wheezing heard no lymphadenopathy Cardiovascular: peripheral perfusion normal, Regular heart rate mild tachycardia Respiratory: Audible wheezing which slight stridor decreased lung sounds diffusely but wheezing in the upper lobes making full sentences Abdomen: nondistended nontender Extremities: warm and moving without difficulty Psych: Cooperative Neuro: Alert and oriented. Vital Signs: Vital Signs: Last Vital Signs Temp 98.6 F 11/20/24 23:45 Pulse 100 11/21/24 00:05 Resp 22 H 11/21/24 00:05 BP 134/84 11/20/24 23:45 Pulse Ox 96 11/20/24 23:45 O2 Del Method Room Air 11/20/24 23:45 BMI result Body Mass Index 29.2 Medications Administered Generic Name Dose Route Start Last Admin Trade Name Freq PRN Reason Stop Dose Admin Magnesium Sulfate 2 gm in 50 mls @ 25 mls/hr 11/20/24 23:50 11/21/24 00:18 Magnesium Sulfate/H2o IV 11/21/24 01:49 25 mls/hr ONCE ONE Administration Discontinued Medications Generic Name Dose Route Start Last Admin Trade Name Freq PRN Reason Stop Dose Admin Albuterol Sulfate 2.5 mg/ 0 mg 11/21/24 00:00 11/21/24 00:04 Albuterol/Ipratropium 3 ml INHALE 11/21/24 00:01 1 dose ONCE ONE Administration Medical Decision Making Medical Decision Making MDM Narrative: Well-appearing 44-year-old female with past medical history significant for asthma presenting to the emergency department today for shortness of breath and a cough. Upon arrival to ED she has audible wheezing were making full sentences. As present for the triage process. Patient was immediately brought back to a room. We have ordered a COVID/flu test along with a chest x-ray and a broncho protocol was placed along with magnesium. Patient's lungs are diffusely wheezing with decreased breath sounds in the lower lobes. The rest of her physical exam is reassuring she appears well hydrated without any evidence of a middle or external ear infection strep throat mono. No fevers and does not appear sick this is most likely to be an asthma exacerbation however we will update plan if abnormal. She has not appear to be septic or ill at this time. 1255: Patient was re-evaluated at bedside she is no longer having any obvious audible wheezing but she does still have mild wheezing on exam she will likely benefit from a repeat breathing treatment she is currently receiving mg via IV. So far COVID and flu is negative chest x-ray pending we will continue to monitor 114: Preliminary view of the chest x-ray does not show any obvious infiltrate. 138: Re-evaluated patient at bedside she is only mildly wheezy saturating 96% on room air she is feeling significantly improved. We did discuss her asthma medication management I do feel she would benefit from oral steroids as well as a step-up in her asthma treatment plan as she is not able to get an appointment soon I will send her home with a prescription for both steroids as well as a steroid inhaler. We discussed the use of this. She was given reasons to return to the emergency department she demonstrated verbal understanding of the plan and agreed and as she is not sick and clinically feeling better did feel she was appropriate to discharge home Differential Diagnosis Differential Diagnoses: The differential diagnosis associated with the presentation includes Asthma exacerbation Acute bronchitis Viral URI Pneumonia Admission/Observation Consideration of admission/observation: Escalation of care including admission/observation considered Lab Data MDM Lab Attestation statement: I reviewed the patient's lab results. Labs: Lab Results 11/20/24 Range/Units 23:52 COVID-19 (JOCELIN) Negative (Negative) COVID-19 Clin Com See Note Influenza Type A (SAWYER) Negative (Negative) Influenza Type B (SAWYER) Negative (Negative) Influenza A & B Note See Note Independent Interpretation I performed an independent interpretation of an: Plain X-Ray Interpretation: prelim: no pna Radiology Impression Discussion of test interpretation with radiology: I have reviewed the radiologist's reading. Independent Historian Clinical information obtained from an independent historian. History obtained from or confirmed by: Spouse Discharge Plan Discharge Clinical Impression: Asthma exacerbation, Acute cough Patient Disposition: Home, Self-Care Instructions: Asthma (ED) Additional Instructions: You were seen in the emergency department today due to shortness of breath and wheezing. You were noted to be an anxiety asthma exacerbation. He received a breathing treatment while here as well as IV magnesium. Your chest x-ray preliminary read does not show any obvious evidence for pneumonia. You also have no evidence of middle or external ear infection on exam. If your final read of your chest x-ray is different in any way and notify you will update the plan. Please take the oral steroids for the next 5 days. Please also use the steroid inhaler that I have sent you you may benefit in the future from pulmonary function testing and follow up with your primary care provider. If for any reason you are feeling worse please return to the emergency department. You can use her rescue inhaler 10 mins before physical activity versus when he actively or wheezing. You were given IV dose of steroid today. DO not start steroid pills until Saturday morning. You are negative to COVID-19 and Influenza. Prescriptions: New fluticasone furoate [Arnuity Ellipta] 100 mcg/actuation blister with device 1 inh inhalation DAILY Qty: 30 0RF (DME) Flexichamber Spacer See Rx Instructions .Route Qty: 1 0RF Rx Instructions: As directed prednisone 20 mg tablet 40 mg PO DAILY 5 Days Qty: 10 0RF No Action hydroxyzine HCl 25 mg tablet 25 mg PO Q6H PRN (Reason: anxiety) Qty: 10 0RF albuterol sulfate 90 mcg/actuation HFA aerosol inhaler 2 puff inhalation Q4-6H PRN (Reason: shortness of breath or wheezing) Qty: 6.7 0RF amitriptyline 10 mg tablet 10 mg PO DAILY naproxen 500 mg tablet 500 mg PO BID acetaminophen 650 mg tablet extended release 650 mg PO Q12H sertraline 25 mg tablet 25 mg PO DAILY fluticasone propionate 50 mcg/actuation spray,suspension 1 spray intranasal DAILY Rx Instructions: administer into each nostril zolmitriptan 5 mg tablet 5 mg PO Q2-4H PRN Rx Instructions: do not exceed 2 doses per 24 hrs cholecalciferol (vitamin D3) 1,250 mcg (50,000 unit) capsule 1,250 mcg PO QWEEK lisinopril 10 mg tablet 10 mg PO DAILY baclofen 10 mg tablet 10 mg PO DAILY Mirena 21 mcg/24 hours (8 yrs) 52 mg intrauterine device intrauterine Referrals: [facility] [Provider Group, Pulmonology] Stand Alone Forms: Work/School Release Print Language: Guamanian
[2024-11-21] MEDS: Albuterol Sulfate 2.5 MG, Albuterol/Iprat 2.5/0.5MG 3 ML 3 ML INHALE (00:04)
[2024-11-21 00:05] VITALS: PULSE 100; RESP 22; O2SAT 96
[2024-11-21] MEDS: Magnesium Sulfate/H2O 2 GM/50 ML PIGGYBACK IV (00:18)
[2024-11-21 00:29] LABS: IDNOW Serial# 55D5AD1C
[2024-11-21 00:30] LABS: COVID-19 Test Negative (Negative); IDNOW Serial# 58CA691E; Influenza B2 Negative (Negative)
--- OUTSIDE RECORDS SUMMARY | 2024-11-21 01:25 | XMS_ITS | Encounter Summary ---
Author Organization [employer] Address [address] [facility] 7t [place] [address] Care Team Providers Care Credit Rating Checker Name Role Phone Ailin Savage DO Primary Care Provider [phone]- [phone] Reason for Visit * Reason Comments Med Refill Encounter Details Date Type Department Care Team ([facility] st Contact Info) Description 06/10/2023 Refill [facility] [address] [place], [place] [phone] Ailin Savage DO [address] [place], [place] [phone] Vitamin D deficiency Social History Tobacco Use [...] documented as of this encounter Care Teams Credit Rating Checker Relationship Specialty Start Date End Date Ailin Savage DO [address] [place] [id number] PCP - General Family Medicine 09/24/11 documented as of this encounter
--- OUTSIDE RECORDS SUMMARY | 2024-11-21 01:26 | XMS_ITS | Clinical Summary ---
Author Organization [employer] Address [address] [place] [address] 7[address] [place] [address] Care Team Providers Care Grinder Brake Lining Name Role Phone Ailin Savage DO Primary Care Provider Allergies Active Allergy Reactions Criticality Noted Date Comments Penicillins 03/23/2022 Topiramate 06/22/2020 Other reaction(s): Agitation Medications glucose blood (FREESTYLE LITE) test stripIndication s:Type 2 diabetes mellitus without complication, without long-term current use of insulin (CMS/HCC) USE DIRECTED TWICE DAILY 100 strip 11 05/07/19 24 Active Lancets Ultra Thin 30G miscIndications :Type 2 diabetes mellitus without complication, without long-term current use of insulin (CMS/HCC) USE DIRECTED TWICE DAILY 100 each 11 05/07/19 24 Active Alcohol Swabs (Alcohol Prep) padsIndications :Type 2 diabetes mellitus without complication, without long-term current use of insulin (CMS/HCC) USE DIRECTED TWICE DAILY 100 each 11 05/07/19 24 Active baclofen (Lioresal) 10 MG [...] week. 4 each 5 08/29/19 24 Active cetirizine (ZyrTEC) 10 MG tablet Take 1 tablet (10 mg) by mouth Once per day. 90 tablet 3 08/29/19 24 Active ergocalciferol (Vitamin D2) 1.25 MG (61760 UT) capsuleIndicati ons:Vitamin D deficiency TAKE 1 CAPSULE BY MOUTH 1 TIME WEEKLY 13 capsule 1 12/25/19 24 Active metFORMIN XR (Glucophage-XR) 500 MG [...] current use of insulin (CMS/HCC) TAKE 1 TABLET(10 MG) BY MOUTH AT BEDTIME 90 tablet 3 05/27/19 25 Active Blood Pressure kit 1 each 1 (one) time per week. 1 kit 06/26/19 25 Active acetaminophen (Tylenol 8 Hour) 650 MG ER tabletIndicatio ns:Pain take 1 Tablet by oral route every 8 hours as needed as needed for PAIN AND/OR FEVER 60 tablet 2 07/09/19 25 Active ZOLMitriptan (Zomig) 5 MG tabletIndicatio ns:Nonintractab le chronic migraine TAKE 1 TABLET BY MOUTH 1 TIME. IF HEADACHE RETURNS, THE DOSE. MAY BE REPEATED AFTER 2 HOURS. NOT TO EXCEED 10 MG WITHIN 24 HOURS 9 tablet 3 07/31/19 25 Active lisinopril 10 MG tabletIndicatio ns:Hypertension , unspecified type TAKE 1 TABLET(10 MG) BY MOUTH IN THE MORNING 90 tablet 1 08/12/19 25 Active Arnuity Ellipta 100 MCG/ACT inhalerIndicati ons:Difficulty breathing INHALE 1 PUFF BY MOUTH DAILY. RINSE MOUTH WITH WATER AFTER USE FOR AFTERTASTE AND INCIDENCE OF CANDIDIASIS. DO NOT SWALLOW 30 each 11 10/08/19 25 Active naproxen (Naprosyn) 500 MG tablet TAKE 1 TABLET BY MOUTH TWICE DAILY WITH FOOD 40 tablet 10/08/19 25 Active fluticasone (Flonase) 50 MCG/ACT nasal sprayIndication s:Seasonal allergic rhinitis, unspecified trigger SHAKE LIQUID AND USE 2 SPRAYS IN EACH NOSTRIL EVERY DAY FOR SEASONAL ALLERGIES 48 g 10/08/19 25 Active Ventolin HFA 108 (90 Base) MCG/ACT inhalerIndicati ons:Cough, unspecified type INHALE 2 PUFFS BY MOUTH EVERY 6 HOURS NEEDED FOR WHEEZING 18 g 1 10/30/19 25 Active Ventolin HFA 108 (90 Base) MCG/ACT inhalerIndicati ons:Cough, unspecified type INHALE 2 PUFFS BY MOUTH EVERY 6 HOURS NEEDED FOR WHEEZING 18 g 1 08/20/19 25 025 Discontinued Active Problems Problem Noted [...] Encounters Date Type Department Care Team Description 11/20/2024 Orders Only GENERIC EXTERNAL DATA DEPARTMENT Provider, Generic External Data 10/29/2024 Patient Outreach [address] [address] Ailin Savage DO Pre-visit Planning (SDOH screening negative and tobacco screening positive) 10/27/[address] [address] Ailin Savage DO Cough, unspecified type 10/22/2024 Travel 10/21/[address] [address] Ailin Savage DO Appointment Request 10/14/[address] [address] Ailin Savage DO No Show 10/13/[address] [address] Ailin Savage DO Chart Prep 10/06/[address] [address] Ailin Savage DO Difficulty breathing; Seasonal allergic rhinitis, unspecified trigger 10/05/2024 Patient Outreach [address] [address] Ailin Savage DO Pre-visit Planning ((Unable to reach for PVP screening, LVM) to be completed in office ) 10/02/[address] [address] Ailin Savage DO Appointment Request 10/02/2024 Travel from Last 3 Months Immunizations Immunization Administration Dates Next Due DTaP 09/20/2011 Hep [...] housing situation today? I have trinity delgado 10/29/[address] you li ve. Do you have problems with any of the following? None of the above 10/29/2024 Food Insecurity Answer Date Recorded Within the past 12 months, y ou worried that your food would run out before you got money to buy more: Never True 10/29/2024 Within the past 12 months,th e food you bought just didn't last and you didn't have enough money to get more: Never True Transportation Answer Date Recorded In the past 12 months, has l ack of transportation kept you from medical appts, meetings, work or from getting things needed for daily living? No 10/29/2024 Utilities Answer Date Recorded In the past 12 months, has t he electric, gas, oil or water company threatened to shut off services in your home? No 10/29/2024 Depression Answer Date Recorded Patient Health Questionnaire-2 Score 2 08/29/2023 Internet Access Answer Date Recorded Internet Access Q1 Yes 10/29/2024 Internet Access Q2 Not on file 10/29/2024 Comments Unknown Sex and Gender Information Value Date Recorded Sex Assigned at Female 01/01/2022 10:16 AM EDT Legal Sex Female 10:16 AM EDT Gender Identity Female 01/01/2022 10:16 AM EDT Sexual Orientation Straight 01/01/2022 10 :16 AM EDT Last Filed Vital Signs Vital Sign Reading Time Taken Comments Blood Pressure 138/96 06/25/2024 4:09 PM EDT Pulse 84 06/25/2024 2:57 PM EDT Temperature 36.6 C (97.9 F) 06/25/2024 2:57 PM EDT Respiratory Rate 17 06/25/2024 2:57 PM EDT Oxygen Saturation 97% 06/25/2024 2:57 PM EDT Inhaled Oxygen Concentration - - Weight 78.5 kg (173 lb) 06/25/2024 2:57 PM EDT Height 165.1 cm (5' 5 ) 08/29/2023 10:21 AM EDT Body Mass Index 28.79 08/29/2023 10:21 AM EDT Plan of Treatment Health Maintenance Due Date Last Done Comments Disability Screening 1982 Diabetes: Foot Exam 1992 Eye Exam 1992 Alcohol/Substance Use Screening 1994 Family Planning (PISQ) 1997 HPV Vaccines (1 - 3-dose series) 1997 Hepatitis B Vaccines (2 of 3 - 19+ 3-dose series) 09/26/2023 08/29/2023 Diagnostic Breast Imaging 12/21/2023 12/20/2022, Mammogram 12/21/2023 12/20/2022, 06/02, 12/14/2021 DTaP/Tdap/Td Vaccines (3 - Td or Tdap) 01/09/2024 01/08/2014, 09/20/2011 Depression Screening 08/28/2024 08/29/2023, 08/29/19 24 Tobacco Screening 08/28/2024 08/29/2023 COVID-19 Vaccine ( season) 2024 10/23/2020, 08/26/2020 Influenza Vaccine (#1) 2024 , 12/03/2021, 12/18/2020, Additional history exists Diabetes: Hemoglobin A1C 12/25/2024 025, 08/29/2023, 03/23/2022 Diabetes: Urine Protein Screening 06/25/2025 06/25/2024 Lipid Panel 06/25/2025 06/25/2024, 03/23/2022 SDOH Screening 10/29/2025 10/29/2024 Cervical Cancer Screening 09/14/2026 HPV/Cotest 09/14/2026 09/14/2021, 09/14/2021 Pap Smear 09/14/2026 Zoster Vaccines (1 of 2) 2032 RSV Patients and Patients Aged 60 years or older (1 - 1-dose 75+ series) 2057 HIV Screening Completed 03/23/2022 Hepatitis C Screening Completed 03/23/2022 Pneumococcal Vaccine: Pediatrics (0 to 5 Years) and At-Risk Patients (6 to 49) Years Completed 03/30/2022 HIB Vaccines Aged Out No longer eligi ble based on patient's age to complete this topic Hepatitis A Vaccines Aged Out No long er eligible based on patient's age to complete this topic IPV Vaccines Aged Out No longer eligi ble based on patient's age to complete this topic Meningococcal B Vaccine Aged Out No l onger eligible based on patient's age to complete [...] Procedure Name Priority Date/Time Associated Diagnosis Comments COVID-19 ID NOW (PEREIRA) Routine 11/20/2024 11:52 PM EDT INFLUENZA A B2 ID NOW (PEREIRA) Routine 11/20/2024 11:52 PM EDT ALBUMIN, RANDOM URINE W/CREATININE Routine 06/25/2024 3:27 PM EDT Type 2 diabetes mellitus without complication, without long-term current use of insulin (CMS/HCC) Essential hypertension Other hyperlipidemia Major depression, recurrent, chronic (CMS/HCC) Seasonal allergies Tobacco dependence syndrome Tinnitus of both ears Chronic migraine Sleep-disordered breathing Healthcare maintenance Encounter for immunization HEMOGLOBIN A1C Routine 06/25/2024 3:27 PM EDT Type 2 diabetes mellitus without complication, without long-term current use of insulin (CMS/HCC) Essential hypertension Other hyperlipidemia Major depression, recurrent, chronic (CMS/HCC) Seasonal allergies Tobacco dependence syndrome Tinnitus of both ears Chronic migraine Sleep-disordered breathing Healthcare maintenance Encounter for immunization LIPID PANEL, STANDARD Routine 06/25/2024 3:27 PM EDT Type 2 [...] ZZZ HISTORICAL HPV E6/E7 RFLX SAMMI 16 Routine 09/14/2021 3:18 PM EDT from Last 3 Months or Most Recently Relevant to Health Maintenance Results * Influenza A B2 ID NOW (Pereira) (11/20/2024 11:52 PM EDT) IDNOW SERIAL# [id number] [facility] Influenza A Negative Negative [facility] Influenza B2 Negative Negative [facility] Influenza A B2 Note See Note [facility] Comment:The Pereira ID NOW In fluenza A B2 test is used for thequalitative detection of influenza A and B from patientswith signs and symptoms of respiratory infection.Negative results do not preclude influenza virus infectionand should not be used as the sole basis for diagnosis,treatment or other patient management decisions.There is a risk of false negative results due to thepresence of variants in the viral targets of the assay, lowlevels of virus in the specimen and co- infection withRespiratory Syncytial Virus. 11/20/2024 11:5 2 PM EDT 11/20/2024 11:55 PM EDT us Generic External Data Provider LAB MICROBIOLOGY - GENERAL ORDERABLES Final Result Performing Organization Address City/[facility]/ZIP Co de Phone Number [facility] [address] [place] [phone] * COVID-19 ID NOW (PEREIRA) (11/20/2024 11:52 PM EDT) IDNOW SERIAL# [id number] [facility] COVID-19 TEST Negative Negative [facility] COVID-19 NOTE See Note [facility] Comment: Results are for the identification of SARS-CoV2 RNA. TheSARS-CoV2 RNA is generally detectable in respiratory samplesduring the acute phase of infection. Positive results areindicative of the presence of SARS-CoV-2 RNA; clinicalcorrelation with patient history and other diagnosticinformation is necessary to determine patient infectionstatus. Positive results do not rule out bacterial infectionor co- infection with other viruses.Testing facilities within the [facility] and [facility] are required to report all positive results tothe appropriate public health authorities.Negative results should be treated as presumptive and, ifinconsistent with clinical signs and symptoms or necessaryfor patient management, should be tested with differentauthorized or cleared molecular tests. Negative results donot preclude SARS-CoV2 RNA infection and should not be usedas the sole basis for patient management decisions. Negativeresults should be considered in the context of a patient'srecent exposures, history and the presence of clinical signsand symptoms consistent with COVID-19.This test has been authorized by the FDA under an EmergencyUse Authorization (EUA) for use by authorized laboratories.Testing performed on the Pereira ID NOW utilizing NAAT. 11/20/2024 11:5 2 PM EDT 11/20/2024 11:55 PM EDT us Generic External Data Provider LAB MOLECULAR TISHA GNOSTICS ORDERABLES Final Result Performing Organization Address City/[facility]/ZIP Co de Phone Number [facility] [address] [place] [phone] * Albumin, Random Urine W/Creatinine (06/25/2024 3:27 PM EDT) Creatinine, Urine 106.57 mg/dL [facility] Microalbumin Urine 9.0 mg/L [facility] Microalbum Creatinine Ratio Ur 8.4 <30 ug/mg cr [facility] Comment:Albumin/Creatinine R atio Reference Ranges: Normal: < 30 ug/mg creatinine Microalbuminuria: 30 - 300 ug/mg creatinineClinical Albuminuria: > 300 ug/mg creatinine Urine (Urine, Random) 06/25/2024 3:27 PM EDT 06/25/2024 5:37 PM EDT Ailin Savage [employer] LAB URINE ORDERABLES Final R esult Performing Organization Address [facility] Co de Phone Number [facility] [address] [place] [phone] * (ABNORMAL) Hemoglobin A1c (06/25/2024 3:27 PM EDT) Hemoglobin A1c 6.1(H) <6.0 % [facility] Comment:Hemoglobin A1C Refer ence Range Adults: 4.8 - 6.0 % Non diabetic: < 6.0 % Goal: < 7.0 %Additional Action Suggested: > 8.0 %Note: Hemoglobin A1c results are invalid for patients with abnormal amounts of HbF. Blood transfusions may impact the HbA1c concentration in the patient sample. Estimated Average Glucose 128 mg/dL [facility] Comment:eAG = Estimated ave rage glucose which is %A1C expressed asaverage glucose, using the formula of the A3Q-ArwyigtSqkjdru Glucose study (ADAG), Diabetes Care, Vol.31,#8,2007 Blood Venous blood specimen / Unknown 06/25/2024 3:27 PM EDT 06/25/2024 3:55 PM EDT Ailin Savage [employer] LAB BLOOD ORDERABLES Final R esult Performing Organization Address City/State/[facility] Co de Phone Number [facility] [address] [place] [phone] [phone] * (ABNORMAL) Lipid Panel, Standard (06/25/2024 3:27 PM EDT) Triglycerides 153(H) <150 mg/dL [facility] Comment:Desirable Triglyceri de: less than 150 mg/dLBorderline High Triglyceride 150-199 mg/dLHigh Triglyceride: 200-499 mg/dLVery High Triglyceride: greater than or equal to 5OO mg/dL Cholesterol 200(H) <200 mg/dL [facility] Comment:Desirable Cholestero l: less than 200 mg/dLBorderline High Cholesterol: 200-239 mg/dLHigh Cholesterol: greater than 239 mg/dL LDL Cholesterol Calculated 130(H) <100 mg/dL [facility] Comment:Desirable LDL: less than 100 mg/dLNear Optimal/Above Optimal LDL: 110- 129 mg/dLBorderline High LDL: 130-159 mg/dLHigh LDL: 160-189 mg/dLVery High LDL: greater than or equal to 190 mg/dL HDL Cholesterol 40(L) >40 mg/dL [facility] Comment:Desirable HDL: great er than 40 mg/dL Note: This HDL assay may give artificially low results in patients with liver disease. Blood Venous blood specimen / Unknown 06/25/2024 3:27 PM EDT 06/25/2024 5:42 PM EDT us Ailin Svaage DO LAB BLOOD ORDERABLES Final R esult [facility] [address] [place] [address] [phone] * BI Mammogram Diagnostic Tomosynthesis Bilateral (12/20/2022 11:45 AM EDT) Anatomical Region Laterality Modality Breast Bilateral Mammography 12/20/2022 11:4 5 AM EDT Narrative 12/20/2022 12:11 PM EDT [facility] [address] [place] [address] Mammography Report Signed Patient: German Sawyer MR#: [id number] [birth year] : 1980 Acct:[id number] Age/Sex: 42 / F ADM Date: 12/20/22 Loc: HO.MAMMO Attending Dr: Vandana Knox MD Ordering Physician: Vandana Jama MD Results: 3.12MProbably Benign Finding - 12 month F/U Suggested Date of Service: 12/20/22 Follow Up: 12 month diagnos tic follow up Procedure(s): MM tomosynthesis diagnostic BI Accession Number(s): [id number] cc: Vandana Jama MD EXAMINATION: MM DIAGNOSTIC [...] in OV> 12/20/22 1208 DD/ 1145 TD/TT: Navy Material Inspector: Procedure Note Donotuseinterpreter, Image - 12/20/2022 [facility] [address] [place] [address] Mammography Report Signed Patient: German SawyerMR#: [id number] 05 : 1980Acct:[id number] Age/Sex: 42 / FADM Date: 12/20/22 Loc: HO.MAMMO Attending Dr: Vandana Knox MD Ordering Physician: Vandana Jama MD Results: 3.12MProbably Benign Finding - 12 month F/U Suggested Date of Service: 12/20/22Follow Up: 12 month diagnos tic follow up Procedure(s): MM tomosynthesis diagnostic BI Accession Number(s): [id number] cc: Vandana Jama MD EXAMINATION: MM DIAGNOSTIC [...] in OV> 12/20/22 1208 DD/ 1145 TD/TT: Navy Material Inspector: us Vandana Knox MD IMG BI PROCEDURES Fin al Result * Hepatitis C Antibody with Reflex to HCV RNA,PCR w/Reflex to Genotype, LiPA (03/23/2022 11:22 AM EST) Hepatitis C Antibody NON-REACT BERNABE NON-REACT BERNABE [facility] Index 0.13 <1.00 [facility] [place] [facility] Comment: HCV antibody was non-reactive. There is no laboratory evidence of HCV infection. In most cases, no further action is required. However, if recent HCV exposure is suspected, a test for HCV RNA (test code 02208) is suggested. For additional information, please refer to http://education.MyVerse/faq/GLC149 (This link is being provided for informational/ educational purposes only.) 03/23/2022 11:2 2 AM EST 03/23/2022 11:22 AM EST Narrative [facility] - 03/27/2022 8:28 AM EST FASTING:YES FASTING: YES Ailin Savage DO LAB BLOOD ORDERABLES Final R esult [facility] [address] [facility] [place] [address] [facility] [place] [facility] [address] [facility], ([address]) [place] [address] * HIV-1/2 Antigen and Antibodies, Fourth Generation, with Reflexes (03/23/2022 11:22 AM EST) HIV Antigen/Antibody, 4th Generation NON-REAC TIVE NON-REAC TIVE [facility] Comment: HIV-1 antigen and HIV-1/HIV-2 antibodies were not detected. There is no laboratory evidence of HIV infection. PLEASE NOTE: This information has been disclosed to you from records whose confidentiality may be protected by state law. If your state requires such protection, then the state law prohibits you from making any further disclosure of the information without the specific written consent of the person to whom it pertains, or as otherwise permitted by law. A general authorization for the release of medical or other information is NOT sufficient for this purpose. For additional information please refer to http://[employer].Repairy/faq/DGO877 (This link is being provided for informational/ educational purposes only.) The performance of this assay has not been clinically validated in patients less than 2 years old. Blood Venous blood specimen / Unknown 03/23/2022 11:22 AM EST 03/23/2022 11:22 AM EST Narrative [facility] - 03/27/2022 8:28 AM EST FASTING:YES FASTING: YES Ailin Savage DO LAB BLOOD ORDERABLES Final R esult [facility] [address] [place] [address] [facility] [place] [facility] [address]) [place] [address] * HPV E6/E7 RFLX SAMMI 16 18/45 (09/14/2021 3:18 PM EDT) HPV mRNA E6/E7 rflx Not Detected Not Detected [employer] Comment: Methodology: Experimental Psychologist-Mediated Amplification This assay detects E6/E7 viral messenger RNA (mRNA) from 14 high-risk HPV types (16,18,31,33,35,39,45,51,52,56,58,59,66,68). Cervical sources are required for HPV testing. If a vaginal source from a patient who has had a total hysterectomy with removal of cervix was submitted, please contact the testing laboratory for alternative testing options. For additional information, please refer to http://[employer].Repairy/faq/KSA947f9 (This link if provided for information/ educational purposes only.) THIS TEST WAS PERFORMED AT: [facility] [address] [facility] [address],[place] [address] CECY SINHA MD 09/14/2021 3:18 PM EDT us [place] HISTORICAL/NON ORDERABLE LABS Fi nal Result [facility] [address] [place] [address], from Last 3 Months or Most Recently Relevant to Health Maintenance [facility] C3 Care Teams Grinder Brake Lining Relationship Specialty Start Date End Date Ailin Savage DO [address] [place] [phone] PCP - General Family Medicine 09/24/11
--- OUTSIDE RECORDS SUMMARY | 2024-11-21 01:26 | XMS_ITS | Encounter Summary ---
Author Organization [employer] Address [address] [facility] [address] [place] [address] Care Team Providers Care Facepiece Line Supervisor Name Role Phone NuhaAilin ruffin Primary Care Provider [phone] Encounter Details Date Type Department Care Team (Late st Contact Info) Description 11/20/2024 Orders Only GENERIC EXTERNAL DATA DEPARTMENT Provider, Generic External Data Social History Tobacco Use Types Packs/Day Years [...] on file documented as of this encounter Procedures Procedure Name Priority Date/Time Associated Diagnosis Comments INFLUENZA A B2 ID NOW (PEREIRA) Routine 11/20/2024 11:52 PM EDT COVID-19 ID NOW (PEREIRA) Routine 11/20/2024 11:52 PM EDT documented in this encounter Results * COVID-19 ID NOW (PEREIRA) (11/20/2024 11:52 PM EDT) IDNOW SERIAL# [id number] [facility] COVID-19 TEST Negative Negative [facility] COVID-19 NOTE See Note [facility] Comment: Results are for the identification of SARS-CoV2 RNA. TheSARS-CoV2 RNA is generally detectable in respiratory samplesduring the acute phase of infection. Positive results areindicative of the presence of SARS-CoV-2 RNA; clinicalcorrelation with patient history and other diagnosticinformation is necessary to determine patient infectionstatus. Positive results do not rule out bacterial infectionor co- infection with other viruses.Testing facilities within the [facility] and itsterritories are required to report all positive results [...] 2 PM EDT 11/20/2024 11:55 PM EDT Generic External Data Provider LAB MOLECULAR TISHA GNOSTICS ORDERABLES Final Result Performing Organization Address [facility] Co de Phone Number [facility] [address] [place] [phone] * Influenza A B2 ID NOW (Pereira) (11/20/2024 11:52 PM EDT) IDNOW SERIAL# [id number] [facility] Influenza A Negative Negative [facility] Influenza B2 Negative Negative [facility] Influenza A B2 Note See Note [facility] Comment:The Pereira ID NOW In [...] 2 PM EDT 11/20/2024 11:55 PM EDT Generic External Data Provider LAB MICROBIOLOGY - GENERAL ORDERABLES Final Result Performing Organization Address [facility] Co de Phone Number [facility] [address] [place] [phone] documented in this encounter Visit Diagnoses Not on filedocumented in this encounter Additional Health Concerns Assessment Noted Time PHQ-9 Depression Total Score: 5 08/29/19 24 10:23 AM EDT documented as of this encounter Care Teams Facepiece Line Supervisor Relationship Specialty Start Date End Date Ailin Savage DO [address] [place] [address] PCP - General Family Medicine 09/24/11 documented as of this encounter
[2024-11-21 01:58] VITALS: BP 126/68; PULSE 125; RESP 22; TEMP 37; O2SAT 95
[2024-11-21 02:12] VITALS: BP 126/68; PULSE 125; RESP 22; TEMP 37; O2SAT 95
--- NOTE | 2024-12-04 01:18 | PC.NURSE ---
Late Entry: Patient received 50ml of magnesium sulfate IV.
== END 2024-11-21 02:14 | disposition home or self-care (01) ==
PROVIDERS: Emergency Provider Emergency Medicine Emergency Medical Services; PCP Family Medicine
DX: J45.901 Unspecified asthma with (acute) exacerbation (principal); R05.9 Cough, unspecified; R06.02 Shortness of breath; Z79.899 Other long term (current) drug therapy; Z03.818 Encounter for observation for suspected exposure to other biological agents ruled out
CPT/HCPCS: 71046; 87502; 87635; 94640; 96374; 96375; 99284; J2919; J3475

== ENCOUNTER → 2024-11-20 23:55 | Outpatient (BNV) | payer MEDICAID, SELFPAY | PROVIDERS: Emergency Provider Emergency Medicine Emergency Medical Services; PCP Family Medicine; Visit Provider General Practice | DX: R06.02 Shortness of breath (principal); R05.9 Cough, unspecified | CPT/HCPCS: 71046 ==